=== PATIENT | female | born 1955 | race Caucasian/White ===

== ENCOUNTER → 2016-03-25 | Outpatient (CLI) | payer MEDICARE, OTHER ==
--- NOTE | 2016-03-26 07:31 | XR ---
EXAMINATION TYPE: XR knee complete RT DATE OF EXAM: 03/25/2016 1:59 PM CLINICAL HISTORY: pain TECHNIQUE: Three views of the right knee are obtained. COMPARISON: None. FINDINGS: There is no acute fracture/dislocation. Moderate tricompartment degenerative narrowing not ed. The overlying soft tissue appears unremarkable. IMPRESSION: There is no acute fracture or dislocation.ICD 10 NO FRACTURE, INITIAL EVALUATION
== END | disposition home or self-care (01) ==
LOC: RADXRYALE 11:21
PROVIDERS: ATTEND Family Medicine
DX: M25.561 Pain in right knee (principal)

== ENCOUNTER → 2016-04-13 | Outpatient (CLI) | payer MEDICARE, OTHER ==
--- NOTE | 2016-04-14 07:06 | XR ---
EXAMINATION TYPE: XR foot complete LT DATE OF EXAM: 04/13/2016 9:11 AM CLINICAL HISTORY: Pain and bruising laterally after fall injury 2 days ago. TECHNIQUE: Frontal, lateral, and oblique images of the left foot are obtained. COMPARISON: Left foot x-ray January 20, 2016. FINDINGS: Osseous structures are demineralized which is noted to lower radiographic sensitivity. See n best on oblique image there is new linear lucency through the fifth metatarsal head likely reflecti ng nondisplaced fracture.. There is varus positioning and flexion of distal fifth toe redemonstrated. Marked flexion at the second PIP joint is also again seen making evaluation at this level suboptimal . There is stable mild to moderate joint space loss first metatarsophalangeal joint. Slight hallux v algus positioning is redemonstrated. Mild diffuse subcutaneous edema is again seen. IMPRESSION: There is probable acute nondisplaced oblique fracture fifth metatarsal head level. (Initial encounter closed type post traumatic fracture)
== END | disposition home or self-care (01) ==
LOC: RADXRYALE 08:58
PROVIDERS: ATTEND Family Medicine
DX: S99.922A Unspecified injury of left foot, initial encounter (principal)

== ENCOUNTER 2018-06-05 20:34 | Emergency (ER) | payer MEDICARE, OTHER ==
[2018-06-05 20:40] VITALS: TEMP 98.1
[2018-06-05] MEDS ORDERED: HYDROmorphone 0.5 MG/0.5 ML SYRINGE IM STA (21:01)
[2018-06-05] MEDS ORDERED: DIAZEPAM 5 MG/ML 2 ML INJ IM ONE (21:01)
[2018-06-05] MEDS ORDERED: HYDROmorphone 1 MG/ML 1 ML SYRINGE IVP STA (21:01)
--- NOTE | 2018-06-05 22:03 | US ---
EXAMINATION TYPE: US venous doppler duplex LE RT DATE OF EXAM: 06/05/2018 9:41 PM COMPARISON: NONE CLINICAL HISTORY: Pain. right leg pain since fall 6 days ago, no swelling, no h/o dvt, patient has MS and is in a lot of discomfort during exam. SIDE PERFORMED: right TECHNIQUE: The lower extremity deep venous system is examined utilizing real time linear array sonog gómez with graded compression, doppler sonography and color-flow sonography. VESSELS IMAGED: External Iliac Vein (EIV) Common Femoral Vein Deep Femoral Vein Greater Saphenous Vein * Femoral Vein Popliteal Vein Small Saphenous Vein * Proximal Calf Veins (* superficial vessels) There is normal flow, compressibility, vascular waveforms. Right Leg: Appears negative for DVT Technologist reports a technically challenging exam. Patient did not cooperate. IMPRESSION: No evident deep venous thrombosis at or above the knee.
--- NOTE | 2018-06-05 22:07 | XR ---
AP pelvis HISTORY: Trauma and pain Single frontal view of the pelvis Bone mineralization, joint spaces and alignment are maintained. IMPRESSION: No fracture or dislocation. Follow-up as indicated.
--- NOTE | 2018-06-05 22:08 | XR ---
Right femur HISTORY: Trauma and pain 2 views of the femur are submitted on 4 images Bone mineralization and alignment are maintained. Arthropathy noted in the right knee. Mild arthropat hy of the right hip. IMPRESSION: No fracture or dislocation.
[2018-06-05] MEDS ORDERED: HYDROmorphone 1 MG/ML 1 ML SYRINGE IM STA (22:29)
--- NOTE | 2018-06-05 22:32 | ED ---
General Adult HPI - General Chief complaint: Fall Stated complaint: Leg pain Time Seen by Provider: 06/05/18 20:42 Source: patient Mode of arrival: wheelchair Limitations: physical limitation - History of Present Illness Initial comments: 63-year-old female patient presents to the emergency department today for evaluation of right hip and right leg pain. Patient states this started around midafternoon today. Patient states that it feels like the muscles are tightening in the thigh and she is unable to tolerate the pain. Patient does take morphine at home and it doesn't seem to be helping her. States that she did have a fall on Wednesday. She does have a history of multiple sclerosis is very unsteady on her feet. States she was not hanging onto anything and she lost her balance and fell landing on the right side. Patient denies any pain after the fall injury. She denies any numbness or tingling to the leg. Denies any other injuries. She denies fevers or chills with this. Denies rash. Patient denies any headache, neck pain, back pain, chest pain, shortness of breath, dizziness, weakness, abdominal pain, nausea, vomiting, or difficulties with bowel movements or urination. - Related Data Home Medications Medication Instructions Recorded Confirmed Albuterol Nebulized [Ventolin 2.5 mg INHALATION RT-QID PRN 12/28/13 09/16/15 Nebulized] Aspirin 325 mg PO DAILY 12/28/13 09/16/15 Budesonide [Pulmicort] 2 ml INHALATION RT-DAILY 12/28/13 09/16/15 Calcium Polycarbophil [Fibercon] 625 mg PO BID 12/28/13 09/16/15 Clopidogrel Bisulfate [Plavix] 75 mg PO DAILY 12/28/13 09/16/15 Diazepam [Valium] 10 mg PO HS 12/28/13 09/16/15 Fluticasone/Salmeterol [Advair 1 puff INHALATION RT-BID 12/28/13 09/16/15 250-50 Diskus] Gabapentin [Neurontin] 100 mg PO BID 12/28/13 09/16/15 Isosorbide Mononitrate [Imdur] 15 mg PO BID 12/28/13 09/16/15 Lidocaine 5% Patch [Lidoderm 5% 2 patch TOPICAL DAILY PRN 12/28/13 09/16/15 Patch] Metoprolol Tartrate 12.5 mg PO BID 12/28/13 09/16/15 Mometasone Furoate [Nasonex Nasal 1 spray EA NOSTRIL DAILY 12/28/13 09/16/15 [place]] Multivitamins, Thera [Multivitamin 1 tab PO DAILY 12/28/13 09/16/15 (formulary)] Nitroglycerin Sl Tabs [Nitrostat] 0.4 mg SL Q5M PRN 12/28/13 09/16/15 Loratadine [Claritin] 10 mg PO DAILY 03/18/14 09/16/15 Rosuvastatin Calcium [Crestor] 20 mg PO HS 01/06/15 09/16/15 Glatiramer Acetate [Copaxone] 40 mg SQ MOWESA 01/07/15 09/16/15 Mineral Oil 133 ml RC ONCE PRN 01/07/15 09/16/15 Morphine Sulfate ER [Ms Contin] 30 mg PO Q12HR 01/07/15 09/16/15 Morphine Sulfate Ir [MSIR] 30 mg PO BID PRN 01/07/15 09/16/15 Cyanocobalamin [Vitamin B-12] 500 mcg PO DAILY 09/16/15 09/16/15 Ferrous Sulfate [Feosol] 325 mg PO DAILY 09/16/15 09/16/15 Fluticasone/Salmeterol [Advair 1 puff INHALATION RT-BID 09/16/15 09/16/15 250-50 Diskus] Previous Rx's Medication Instructions Recorded Omeprazole [PriLOSEC] 40 mg PO -BRKFST #14 capsule. 09/17/15 Allergies Allergy/AdvReac Type Severity Reaction Status Date / Time acetaminophen [From Percocet] Allergy Anaphylaxis Verified 06/05/18 20:40 ampicillin Allergy Rash/Hives Verified 06/05/18 20:40 atorvastatin calcium Allergy Unknown Verified 06/05/18 20:40 [From Lipitor] ciprofloxacin HCl Allergy Rash/Hives Verified 06/05/18 20:40 [From Cipro] diphenhydramine HCl Allergy Unknown Verified 06/05/18 20:40 [From Benadryl] fentanyl [From Duragesic] Allergy Unknown Verified 06/05/18 20:40 iodine Allergy Rash/Hives Verified 06/05/18 20:40 oxymorphone HCl [From Opana] Allergy Unknown Verified 06/05/18 20:40 Sulfa (Sulfonamide Allergy Unknown Verified 06/05/18 20:40 Antibiotics) azithromycin [From Zithromax] AdvReac Nausea Verified 06/05/18 20:40 cephalexin monohydrate AdvReac Nausea Verified 06/05/18 20:40 [From Keflex] oxycodone HCl AdvReac Hallucinati Verified 06/05/18 20:40 [From OxyContin] ons propoxyphene HCl AdvReac Nausea Verified 06/05/18 20:40 [From Darvon] Review of Systems ROS Statement: Those systems with pertinent positive or pertinent negative responses have been documented in the HPI. ROS Other: All systems not noted in ROS Statement are negative. Past Medical History Past Medical History: Asthma, Coronary Artery Disease (CAD), Chest Pain / Angina, COPD, Eye Disorder, Fibromyalgia, GI Bleed, Hyperlipidemia, Neurologic Disorder, Osteoarthritis (OA) Additional Past Medical History / Comment(s): MS History of Any Multi-Drug Resistant Organisms: None Reported Past Surgical History: Appendectomy, Heart Catheterization With Stent, Hysterectomy, Joint Replacement, Orthopedic Surgery Additional Past Surgical History / Comment(s): CARDIAC STENTS 10 Past Anesthesia/Blood Transfusion Reactions: No Reported Reaction Date of Last Stent Placement:: 2008 Past Psychological History: Anxiety Smoking Status: Never smoker Past Alcohol Use History: None Reported Past Drug Use History: None Reported - Past Family History Mother Additional Family Medical History / Comment(s): Lupus Sister(s) Family Medical History: Cancer Additional Family Medical History / Comment(s): Uterus General Exam Limitations: physical limitation General appearance: alert, in no apparent distress, other (This is a well- developed, well-nourished adult female patient in mild distress related to pain. Vital signs upon presentation are temperature 98.1F. 99, respirations 20, blood pressure 116/71, pulse ox 93% on room air.) Eye exam: Present: normal appearance, PERRL, EOMI. Absent: scleral icterus, conjunctival injection, periorbital swelling ENT exam: Present: normal exam, normal oropharynx, mucous membranes moist Respiratory exam: Present: normal lung sounds bilaterally. Absent: respiratory distress, wheezes, rales, rhonchi, stridor Cardiovascular Exam: Present: regular rate, normal rhythm, normal heart sounds. Absent: systolic murmur, diastolic murmur, rubs, gallop, clicks Extremities exam: Present: normal inspection, full ROM, normal capillary refill, other (Patient has nonpitting edema noted to the bilateral lower extremities. Skin is pink, warm, and dry. Cap refills less than 3 seconds. Pedal and posttibial pulses are 2+ and equal bilaterally.). Absent: tenderness, pedal edema, joint swelling, calf tenderness Back exam: Present: normal inspection. Absent: vertebral tenderness Neurological exam: Present: alert, oriented X3, CN II-XII intact Psychiatric exam: Present: normal affect, normal mood Skin exam: Present: warm, dry, intact, normal color. Absent: rash Course Vital Signs 06/05/18 06/05/18 20:37 22:51 Temperature 98.1 F Pulse Rate 99 83 Respiratory 20 18 Rate Blood Pressure 116/71 123/71 O2 Sat by Pulse 93 L 97 Oximetry Medical Decision Making - Medical Decision Making 63-year-old female patient presented to the emergency department today for evaluation of right hip and right thigh pain. Physical examination is relatively unremarkable. Neurovascular status was intact. X-rays of the pelvis, right femur were obtained and showed no evidence of fracture or dislocations. Patient did have venous Doppler duplex of the right lower extremity which showed no evidence for DVT. Patient was given IM pain medications here in the emergency department. She does have morphine at home as well as Valium. She is instructed to start taking the Valium 3 times daily as needed. Parent instructed to apply ice or heat to the area alternating. Instructed to follow-up with the primary care physician for recheck as soon as possible. Return parameters discussed in detail. They verbalize understanding and agree with this plan. - Radiology Data Radiology results: report reviewed, image reviewed Single frontal view of the pelvis was obtained. Report was reviewed in its entirety. Impression by Dr. Covington shows no fracture or dislocation. 2 views on four images of the right femur are submitted. Report was reviewed in its entirety. Impression by Dr. Covington shows no fracture dislocation. Venous Doppler duplex of the right lower extremity is obtained. Report was reviewed in its entirety. Impression by Dr. Covington shows negative for DVT. Disposition Clinical Impression: Strain of right hip and thigh Disposition: HOME SELF-CARE Condition: Good Instructions (If sedation given, give patient instructions): Leg Pain (ED) Additional Instructions: Take home medications as directed. Follow-up with your primary care physician for recheck as soon as possible. Return to the emergency department immediately for any new, worsening, or concerning symptoms. Is patient prescribed a controlled substance at d/c from ED?: No Referrals: Preet Gu DO [Primary Care Provider] - 1-2 days Time of Disposition: 22:32
[2018-06-05 22:51] VITALS: BP 123/71; PULSE 83; RESP 18
== END 2018-06-05 22:40 | disposition home or self-care (01) ==
LOC: EC 20:34
DX: S76.011A Strain of muscle, fascia and tendon of right hip, initial encounter (principal); S76.911A Strain of unspecified muscles, fascia and tendons at thigh level, right thigh, initial encounter; I25.119 Atherosclerotic heart disease of native coronary artery with unspecified angina pectoris; J44.9 Chronic obstructive pulmonary disease, unspecified; E78.5 Hyperlipidemia, unspecified; F41.9 Anxiety disorder, unspecified; Z79.02 Long term (current) use of antithrombotics/antiplatelets; Z79.82 Long term (current) use of aspirin; Z79.51 Long term (current) use of inhaled steroids; Z79.899 Other long term (current) drug therapy; Z88.1 Allergy status to other antibiotic agents; Z88.6 Allergy status to analgesic agent; Z88.8 Allergy status to other drugs, medicaments and biological substances; Z88.2 Allergy status to sulfonamides; Z88.5 Allergy status to narcotic agent; Z91.048 Other nonmedicinal substance allergy status; Z95.5 Presence of coronary angioplasty implant and graft; W19.XXXA Unspecified fall, initial encounter
CPT/HCPCS: 72170; 73552; 93971; 99284; 96372 ×3; J3360; J1170 ×2

== ENCOUNTER 2019-08-31 21:29 | Emergency (ER) | payer MEDICARE, OTHER ==
[2019-08-31 21:42] VITALS: RESP 18; TEMP 98
[2019-08-31 22:26] LABS: Basophils # (A) 0.1 k/uL (0-0.2); Basophils % (A) 1 %; Eosinophils # (A) 0.5 k/uL (0-0.7); Eosinophils % (A) 5 %; HCT 44.7 % (34.0-46.0); HGB 13.6 gm/dL (11.4-16.0); Hypochromasia Marked; Lymphocytes % (A) 10 %; MCH 27.5 pg (25.0-35.0); MCHC 30.3 g/dL (31.0-37.0); MCV 90.7 fL (80.0-100.0); Mean Platelet Volume 8.3; Monocytes # (A) 0.4 k/uL (0-1.0); Monocytes % (A) 4 %; Neutrophils # (A) 8.3 k/uL (1.3-7.7); Neutrophils % (A) 80 %; Platelet Count 378 k/uL (150-450); RBC 4.93 m/uL (3.80-5.40); RDW 13.7 % (11.5-15.5); WBC 10.4 k/uL (3.8-10.6)
[2019-08-31 22:32] LABS: ALT 13 U/L (4-34); AST 27 U/L (14-36); African American GFR (CKD) >90 (>60 ml/min/1.73 sqM); Alkaline Phosphatase 109 U/L (38-126); Anion Gap 9 mmol/L; Blood Urea Nitrogen 15 mg/dL (7-17); Carbon Dioxide 25 mmol/L (22-30); Chloride 103 mmol/L (98-107); Glucose 114 mg/dL (74-99); Non-African American GFR(CKD) >90 (>60 ml/min/1.73 sqM); Potassium 4.2 mmol/L (3.5-5.1); Sodium 137 mmol/L (137-145); Total Bilirubin 0.2 mg/dL (0.2-1.3); Total Protein 7.2 g/dL (6.3-8.2)
--- NOTE | 2019-08-31 22:36 | XR ---
EXAMINATION TYPE: XR chest 2V DATE OF EXAM: 08/31/2019 COMPARISON: 09/16/2015 HISTORY: Chest pain TECHNIQUE: FINDINGS: There is no heart failure nor confluent pneumonic infiltrate. Costophrenic angles are clear . There is some fullness at the aortopulmonary window. There is slight increased right paratracheal d ensity compared to old exam. There is no pleural effusion. IMPRESSION: Compared to old exam there appears to be development of mediastinal adenopathy. Normal he art size. No heart failure seen. Follow-up is recommended.
[2019-08-31] MEDS ORDERED: MORPHINE SULFATE 4 MG/ML SYRINGE IVP STA (23:07)
[2019-08-31] MEDS ORDERED: LORazepam 2 MG/ML INJ IV STA (23:09)
[2019-08-31 23:17] LABS: INR 1.1 (<1.2); Prothrombin Time 11.1 sec (9.0-12.0)
[2019-08-31 23:24] LABS: Partial Thromboplastin Time 21.6 sec (22.0-30.0)
--- NOTE | 2019-09-01 00:55 | ED ---
Back Pain HPI - General Chief Complaint: Chest Pain Stated Complaint: back pain Time Seen by Provider: 08/31/19 22:56 Source: patient, EMS Limitations: no limitations - History of Present Illness Initial Comments: Patient is a 64-year-old female, with history of MS, presenting to the emergency Department via EMS with complaints of left sided upper back pain since the middle of July. Patient was given 15 of Toradol EMS prior to arrival without any improvement of her pain. Patient states she did go to her PCP for this and he stated it was mostly muscle related. She already takes morphine at home for pain and they did add on a muscle relaxer however she feels like it is not working. She states she is getting some referred pains to the right side of her chest. She denies any falls or trauma to cause this pain. She states it increases when she takes in a deep breath or when she turns her torso. She denies any recent fever, chills, shortness of breath. She denies any abdominal pain, nausea, vomiting. She has no further complaints at this time. Upon arrival to the ER, her vital signs are stable. - Related Data Home Medications Medication Instructions Recorded Confirmed Albuterol Nebulized [Ventolin 2.5 mg INHALATION RT-QID PRN 12/28/13 09/16/15 Nebulized] Aspirin 325 mg PO DAILY 12/28/13 09/16/15 Budesonide [Pulmicort] 2 ml INHALATION RT-DAILY 12/28/13 09/16/15 Calcium Polycarbophil [Fibercon] 625 mg PO BID 12/28/13 09/16/15 Clopidogrel Bisulfate [Plavix] 75 mg PO DAILY 12/28/13 09/16/15 Diazepam [Valium] 10 mg PO HS 12/28/13 09/16/15 Fluticasone/Salmeterol [Advair 1 puff INHALATION RT-BID 12/28/13 09/16/15 250-50 Diskus] Gabapentin [Neurontin] 100 mg PO BID 12/28/13 09/16/15 Isosorbide Mononitrate [Imdur] 15 mg PO BID 12/28/13 09/16/15 Lidocaine 5% Patch [Lidoderm 5% 2 patch TOPICAL DAILY PRN 12/28/13 09/16/15 Patch] Metoprolol Tartrate 12.5 mg PO BID 12/28/13 09/16/15 Mometasone Furoate [Nasonex Nasal 1 spray EA NOSTRIL DAILY 12/28/13 09/16/15 [place]] Multivitamins, Thera [Multivitamin 1 tab PO DAILY 12/28/13 09/16/15 (formulary)] Nitroglycerin Sl Tabs [Nitrostat] 0.4 mg SL Q5M PRN 12/28/13 09/16/15 Loratadine [Claritin] 10 mg PO DAILY 03/18/14 09/16/15 Rosuvastatin Calcium [Crestor] 20 mg PO HS 01/06/15 09/16/15 Glatiramer Acetate [Copaxone] 40 mg SQ MOWESA 01/07/15 09/16/15 Mineral Oil 133 ml RC ONCE PRN 01/07/15 09/16/15 Morphine Sulfate ER [Ms Contin] 30 mg PO Q12HR 01/07/15 09/16/15 Morphine Sulfate Ir [MSIR] 30 mg PO BID PRN 01/07/15 09/16/15 Cyanocobalamin [Vitamin B-12] 500 mcg PO DAILY 09/16/15 09/16/15 Ferrous Sulfate [Feosol] 325 mg PO DAILY 09/16/15 09/16/15 Fluticasone/Salmeterol [Advair 1 puff INHALATION RT-BID 09/16/15 09/16/15 250-50 Diskus] Previous Rx's Medication Instructions Recorded Omeprazole [PriLOSEC] 40 mg PO AC-BRKFST #14 capsule. 09/17/15 Allergies Allergy/AdvReac Type Severity Reaction Status Date / Time acetaminophen [From Percocet] Allergy Anaphylaxis Verified 08/31/19 21:43 ampicillin Allergy Rash/Hives Verified 08/31/19 21:43 atorvastatin calcium Allergy Unknown Verified 08/31/19 21:43 [From Lipitor] ciprofloxacin HCl Allergy Rash/Hives Verified 08/31/19 21:43 [From Cipro] diphenhydramine HCl Allergy Unknown Verified 08/31/19 21:43 [From Benadryl] fentanyl [From Duragesic] Allergy Unknown Verified 08/31/19 21:43 iodine Allergy Rash/Hives Verified 08/31/19 21:43 oxymorphone HCl [From Opana] Allergy Unknown Verified 08/31/19 21:43 Sulfa (Sulfonamide Allergy Unknown Verified 08/31/19 21:43 Antibiotics) azithromycin [From Zithromax] AdvReac Nausea Verified 08/31/19 21:43 cephalexin monohydrate AdvReac Nausea Verified 08/31/19 21:43 [From Keflex] oxycodone HCl AdvReac Hallucinati Verified 08/31/19 21:43 [From OxyContin] ons propoxyphene HCl AdvReac Nausea Verified 08/31/19 21:43 [From Darvon] Review of Systems ROS Statement: Those systems with pertinent positive or pertinent negative responses have been documented in the HPI. ROS Other: All systems not noted in ROS Statement are negative. Past Medical History Past Medical History: Asthma, Coronary Artery Disease (CAD), Chest Pain / Angina, COPD, Eye Disorder, Fibromyalgia, GI Bleed, Hyperlipidemia, Neurologic Disorder, Osteoarthritis (OA) Additional Past Medical History / Comment(s): MS History of Any Multi-Drug Resistant Organisms: None Reported Past Surgical History: Appendectomy, Heart Catheterization With Stent, Hysterectomy, Joint Replacement, Orthopedic Surgery Additional Past Surgical History / Comment(s): CARDIAC STENTS 10 Past Anesthesia/Blood Transfusion Reactions: No Reported Reaction Date of Last Stent Placement:: 2008 Past Psychological History: Anxiety Smoking Status: Never smoker Past Alcohol Use History: None Reported Past Drug Use History: None Reported - Past Family History Mother Additional Family Medical History / Comment(s): Lupus Sister(s) Family Medical History: Cancer Additional Family Medical History / Comment(s): Uterus General Exam - General Exam Comments Initial Comments: GENERAL: Well-appearing, well-nourished and in no acute distress, but appears uncomfortable. HEAD: Atraumatic, normocephalic. EYES: Pupils equal round and reactive to light, extraocular movements intact, sclera anicteric, conjunctiva are normal. ENT: TMs normal, nares patent, oropharynx clear without exudates. Moist mucous membranes. NECK: Normal range of motion, supple without lymphadenopathy or JVD. LUNGS: Breath sounds clear to auscultation bilaterally and equal. No wheezes rales or rhonchi. HEART: Regular rate and rhythm without murmurs, rubs or gallops. ABDOMEN: Soft, nontender, normoactive bowel sounds. No guarding, no rebound. No masses appreciated. : Deferred EXTREMITIES: Normal range of motion, no pitting or edema. No clubbing or cyanosis. Patient has pain to palpation of the left upper thoracic area, around the scapula. There is some muscle tightness in this area. NEUROLOGICAL: Cranial nerves II through XII grossly intact. Normal speech, normal gait. PSYCH: Normal mood, normal affect. SKIN: Warm, Dry, normal turgor, no rashes or lesions noted. Limitations: no limitations Course Vital Signs 08/31/19 08/31/19 09/01/19 21:40 23:23 02:06 Temperature 98 F 98 F Pulse Rate 84 85 80 Respiratory 18 18 18 Rate Blood Pressure 174/89 143/83 140/78 O2 Sat by Pulse 99 99 99 Oximetry Medical Decision Making - Medical Decision Making Patient is 64-year-old female, with history of MS, presenting for left upper thoracic pain 2 weeks. She has seen her PCP for this. She already takes morphine at home and they did add on a muscle relaxer. EKG shows no acute abnormalities, lab work today is unremarkable, troponin is normal. Chest x-ray Shows a slight increase in the right paratracheal density compared to old exam, no other acute findings. Do recommend following up with PCP regarding this. Patient was given pain control, Ativan and has been resting comfortably in the ER. I discussed with patient that I think her symptoms are most likely related to a muscle spasm. I did recommended continuing with her already prescribed medications, add heat to the area and gentle stretching. She also needs to follow up with her neurologist. She is in agreement with this plan of care. She is stable for discharge. Case discussed with Dr. Cason. - Lab Data Result diagrams: 08/31/19 22:13 08/31/19 22:13 Lab Results 08/31/19 08/31/19 08/31/19 Range/Units 22:13 22:13 22:13 WBC 10.4 (3.8-10.6) k/uL RBC 4.93 (3.80-5.40) m/uL Hgb 13.6 (11.4-16.0) gm/dL Hct 44.7 (34.0-46.0) % MCV 90.7 (80.0-100.0) fL MCH 27.5 (25.0-35.0) pg MCHC 30.3 L (31.0-37.0) g/dL RDW 13.7 (11.5-15.5) % Plt Count 378 (150-450) k/uL Neutrophils % 80 % Lymphocytes % 10 % Monocytes % 4 % Eosinophils % 5 % Basophils % 1 % Neutrophils # 8.3 H (1.3-7.7) k/uL Lymphocytes # 1.0 (1.0-4.8) k/uL Monocytes # 0.4 (0-1.0) k/uL Eosinophils # 0.5 (0-0.7) k/uL Basophils # 0.1 (0-0.2) k/uL Hypochromasia Marked PT 11.1 (9.0-12.0) sec INR 1.1 (<1.2) APTT 21.6 L (22.0-30.0) sec Sodium 137 (137-145) mmol/L Potassium 4.2 (3.5-5.1) mmol/L Chloride 103 (98-107) mmol/L Carbon Dioxide 25 (22-30) mmol/L Anion Gap 9 mmol/L BUN 15 (7-17) mg/dL Creatinine 0.65 (0.52-1.04) mg/dL Est GFR (CKD-EPI)AfAm >90 (>60 ml/min/1.73 sqM) Est GFR (CKD-EPI)NonAf >90 (>60 ml/min/1.73 sqM) Glucose 114 H (74-99) mg/dL Calcium 10.0 (8.4-10.2) mg/dL Total Bilirubin 0.2 (0.2-1.3) mg/dL AST 27 (14-36) U/L ALT 13 (4-34) U/L Alkaline Phosphatase 109 (38-126) U/L Troponin I (0.000-0.034) ng/mL Total Protein 7.2 (6.3-8.2) g/dL Albumin 4.0 (3.5-5.0) g/dL 08/31/19 Range/Units 22:13 WBC (3.8-10.6) k/uL RBC (3.80-5.40) m/uL Hgb (11.4-16.0) gm/dL Hct (34.0-46.0) % MCV (80.0-100.0) fL MCH (25.0-35.0) pg MCHC (31.0-37.0) g/dL RDW (11.5-15.5) % Plt Count (150-450) k/uL Neutrophils % % Lymphocytes % % Monocytes % % Eosinophils % % Basophils % % Neutrophils # (1.3-7.7) k/uL Lymphocytes # (1.0-4.8) k/uL Monocytes # (0-1.0) k/uL Eosinophils # (0-0.7) k/uL Basophils # (0-0.2) k/uL Hypochromasia PT (9.0-12.0) sec INR (<1.2) APTT (22.0-30.0) sec Sodium (137-145) mmol/L Potassium (3.5-5.1) mmol/L Chloride (98-107) mmol/L Carbon Dioxide (22-30) mmol/L Anion Gap mmol/L BUN (7-17) mg/dL Creatinine (0.52-1.04) mg/dL Est GFR (CKD-EPI)AfAm (>60 ml/min/1.73 sqM) Est GFR (CKD-EPI)NonAf (>60 ml/min/1.73 sqM) Glucose (74-99) mg/dL Calcium (8.4-10.2) mg/dL Total Bilirubin (0.2-1.3) mg/dL AST (14-36) U/L ALT (4-34) U/L Alkaline Phosphatase (38-126) U/L Troponin I <0.012 (0.000-0.034) ng/mL Total Protein (6.3-8.2) g/dL Albumin (3.5-5.0) g/dL - EKG Data EKG Comments: EKG shows normal sinus rhythm, nonspecific T-wave abnormalities, no signs of acute ischemia. This is similar to previous EKG on 09/17/2015. Adam rate 80, CO interval 152, QT 364. Disposition Clinical Impression: Upper back pain on left side, Musculoskeletal pain Disposition: HOME SELF-CARE Condition: Stable Instructions (If sedation given, give patient instructions): Muscle Spasm (ED) Additional Instructions: Please return to the Emergency Department if symptoms worsen or any other concerns. May continue with already prescribed pain control as well as muscle relaxers. Recommend following up with neurologist. Is patient prescribed a controlled substance at d/c from ED?: No Referrals: Preet Gu DO [Primary Care Provider] - 1-2 days
[2019-09-01 02:06] VITALS: BP 140/78; PULSE 80
== END 2019-09-01 02:10 | disposition home or self-care (01) ==
LOC: EC 21:29
DX: M54.6 Pain in thoracic spine (principal); M79.18 Myalgia, other site; G35 Multiple sclerosis; I25.119 Atherosclerotic heart disease of native coronary artery with unspecified angina pectoris; J44.9 Chronic obstructive pulmonary disease, unspecified; E78.5 Hyperlipidemia, unspecified; M19.90 Unspecified osteoarthritis, unspecified site; F41.9 Anxiety disorder, unspecified; Z79.02 Long term (current) use of antithrombotics/antiplatelets; Z79.51 Long term (current) use of inhaled steroids; Z79.82 Long term (current) use of aspirin; Z79.891 Long term (current) use of opiate analgesic; Z79.899 Other long term (current) drug therapy; Z88.8 Allergy status to other drugs, medicaments and biological substances; Z88.5 Allergy status to narcotic agent; Z88.1 Allergy status to other antibiotic agents; Z88.0 Allergy status to penicillin; Z88.2 Allergy status to sulfonamides; Z91.048 Other nonmedicinal substance allergy status; Z95.5 Presence of coronary angioplasty implant and graft
CPT/HCPCS: 36415; 93005; 80053; 84484; 85025; 85610; 85730; 71046; 96374; 96375; 99284; J2060; J2270

== ENCOUNTER 2019-09-02 23:15 | Observation (INO) | payer MEDICARE, OTHER ==
[2019-09-02] MEDS ORDERED: MORPHINE SULFATE 4 MG/ML SYRINGE IV STA (23:48)
[2019-09-02] MEDS ORDERED: ASPIRIN 81 MG PO STA (23:48)
--- NOTE | 2019-09-03 00:10 | ED ---
Chest Pain HPI - General Chief Complaint: Chest Pain Stated Complaint: Back Pain Time Seen by Provider: 09/02/19 23:23 Source: patient, EMS Mode of arrival: EMS Limitations: physical limitation - History of Present Illness Initial Comments: Kenia is a 64-year-old female with history of MS who presents the ER today for reevaluation of back and chest pain. Patient believes pain began in her back and is radiating to her chest. Not associated with any cough or shortness of breath. Patient reports the pain began in mid July she seen her primary care a nd was seen in the emergency department for this 2 days ago. At that time she had a normal, EKG, CXR and labs and felt better with IV narcotics and was discharged home. She reports she's not been able to manage her pain at home. Patient denies any recent falls or injuries. She reports this pain is unlike previous episodes of back pain - Related Data Home Medications Medication Instructions Recorded Confirmed Albuterol Nebulized [Ventolin 2.5 mg INHALATION RT-QID PRN 12/28/13 09/16/15 Nebulized] Aspirin 325 mg PO DAILY 12/28/13 09/16/15 Budesonide [Pulmicort] 2 ml INHALATION RT-DAILY 12/28/13 09/16/15 Calcium Polycarbophil [Fibercon] 625 mg PO BID 12/28/13 09/16/15 Clopidogrel Bisulfate [Plavix] 75 mg PO DAILY 12/28/13 09/16/15 Diazepam [Valium] 10 mg PO HS 12/28/13 09/16/15 Fluticasone/Salmeterol [Advair 1 puff INHALATION RT-BID 12/28/13 09/16/15 250-50 Diskus] Gabapentin [Neurontin] 100 mg PO BID 12/28/13 09/16/15 Isosorbide Mononitrate [Imdur] 15 mg PO BID 12/28/13 09/16/15 Lidocaine 5% Patch [Lidoderm 5% 2 patch TOPICAL DAILY PRN 12/28/13 09/16/15 Patch] Metoprolol Tartrate 12.5 mg PO BID 12/28/13 09/16/15 Mometasone Furoate [Nasonex Nasal 1 spray EA NOSTRIL DAILY 12/28/13 09/16/15 [place]] Multivitamins, Thera [Multivitamin 1 tab PO DAILY 12/28/13 09/16/15 (formulary)] Nitroglycerin Sl Tabs [Nitrostat] 0.4 mg SL Q5M PRN 12/28/13 09/16/15 Loratadine [Claritin] 10 mg PO DAILY 03/18/14 09/16/15 Rosuvastatin Calcium [Crestor] 20 mg PO HS 01/06/15 09/16/15 Glatiramer Acetate [Copaxone] 40 mg SQ MOWESA 01/07/15 09/16/15 Mineral Oil 133 ml RC ONCE PRN 01/07/15 09/16/15 Morphine Sulfate ER [Ms Contin] 30 mg PO Q12HR 01/07/15 09/16/15 Morphine Sulfate Ir [MSIR] 30 mg PO BID PRN 01/07/15 09/16/15 Cyanocobalamin [Vitamin B-12] 500 mcg PO DAILY 09/16/15 09/16/15 Ferrous Sulfate [Feosol] 325 mg PO DAILY 09/16/15 09/16/15 Fluticasone/Salmeterol [Advair 1 puff INHALATION RT-BID 09/16/15 09/16/15 250-50 Diskus] Previous Rx's Medication Instructions Recorded Omeprazole [PriLOSEC] 40 mg PO AC-[id number] #14 capsule. 09/17/15 Allergies Allergy/AdvReac Type Severity Reaction Status Date / Time acetaminophen [From Percocet] Allergy Anaphylaxis Verified 08/31/19 21:43 ampicillin Allergy Rash/Hives Verified 08/31/19 21:43 atorvastatin calcium Allergy Unknown Verified 08/31/19 21:43 [From Lipitor] ciprofloxacin HCl Allergy Rash/Hives Verified 08/31/19 21:43 [From Cipro] diphenhydramine HCl Allergy Unknown Verified 08/31/19 21:43 [From Benadryl] fentanyl [From Duragesic] Allergy Unknown Verified 08/31/19 21:43 iodine Allergy Rash/Hives Verified 08/31/19 21:43 oxymorphone HCl [From Opana] Allergy Unknown Verified 08/31/19 21:43 Sulfa (Sulfonamide Allergy Unknown Verified 08/31/19 21:43 Antibiotics) azithromycin [From Zithromax] AdvReac Nausea Verified 08/31/19 21:43 cephalexin monohydrate AdvReac Nausea Verified 08/31/19 21:43 [From Keflex] oxycodone HCl AdvReac Hallucinati Verified 08/31/19 21:43 [From OxyContin] ons propoxyphene HCl AdvReac Nausea Verified 08/31/19 21:43 [From Darvon] Review of Systems ROS Statement: Those systems with pertinent positive or pertinent negative responses have been documented in the HPI. ROS Other: All systems not noted in ROS Statement are negative. EKG Findings - EKG Comments: EKG Findings:: EKG was obtained due to complaint chest pain, EKG was obtained 12:39 AM, rate is 79 rhythm is sinus there is normal axis, normal intervals, TN 138, care stage II from QTc is [address] elevations or depressions no evidence of acute ischemia infarction or arrhythmia. Past Medical History Past Medical History: Asthma, Coronary Artery Disease (CAD), Chest Pain / Angina, COPD, Eye Disorder, Fibromyalgia, GI Bleed, Hyperlipidemia, Neurologic Disorder, Osteoarthritis (OA) Additional Past Medical History / Comment(s): MS History of Any Multi-Drug Resistant Organisms: None Reported Past Surgical History: Appendectomy, Heart Catheterization With Stent, Hysterectomy, Joint Replacement, Orthopedic Surgery Additional Past Surgical History / Comment(s): CARDIAC STENTS 10 Past Anesthesia/Blood Transfusion Reactions: No Reported Reaction Date of Last Stent Placement:: 2008 Past Psychological History: Anxiety Smoking Status: Never smoker Past Alcohol Use History: None Reported Past Drug Use History: None Reported - Past Family History Mother Additional Family Medical History / Comment(s): Lupus Sister(s) Family Medical History: Cancer Additional Family Medical History / Comment(s): Uterus General Exam - General Exam Comments Initial Comments: Physical Exam GENERAL: Chronically debilitated female appears older than stated age HENT: Normocephalic, Atraumatic. EYES: PERRL, EOMI PULMONARY: Unlabored respirations. No audible rales rhonchi or wheezing was noted. CARDIOVASCULAR: There is a regular rate and rhythm without any murmurs gallops or rubs. ABDOMEN: Mild distention, soft, nontender SKIN: Skin is clear with no lesions or rashes and otherwise unremarkable. : Normal external genitalia NEUROLOGIC: Patient is alert and oriented x3. Moving all extremities spontaneously MUSCULOSKELETAL: Weakness in the lower extremities consistent with MS PSYCHIATRIC: Normal psychiatric evaluation. Limitations: physical limitation Course Vital Signs 09/02/19 09/03/19 09/03/19 23:23 01:31 02:42 Temperature 98.7 F Pulse Rate 89 80 95 Respiratory 18 16 18 Rate Blood Pressure 107/78 138/81 137/60 O2 Sat by Pulse 99 98 100 Oximetry Chest Pain MDM - MDM Patient was seen and evaluated history is obtained from patient and review of medical record This is a pleasant 64-year-old lady doesn't frequently come to the ER however was seen 2 days ago for back and chest pain, chest x-ray concerning for possible mass D-dimer is elevated CTA was obtained there is no signs of PE however there is concern for mass in the left lung Patient's pain was very difficult to control she received multiple doses of narcotics At this time we will plan to admit the patient for pain management as well as further evaluation of the lung mass, patient agreeable to this Disposition Clinical Impression: Lung mass, Intractable pain Disposition: ADMITTED IP TO THIS [facility] Condition: Stable
--- NOTE | 2019-09-03 00:10 | XR ---
EXAMINATION TYPE: XR chest 2V DATE OF EXAM: 09/02/2019 COMPARISON: August 31, 2019 HISTORY: Chest pain TECHNIQUE: FINDINGS: Heart size is normal. There is 5 cm masslike infiltrate inferior to the left pulmonary hilu m in the left lower lobe superior segment. The other lung mayo are clear. There is some fullness of the azygos lymph node. There is some fullness at the aortopulmonary window. Costophrenic angles are clear. There is no heart failure. There is no pleural effusion. Bony thorax is intact. IMPRESSION: Left lower lobe masslike infiltrate. Possible mediastinal adenopathy. No change compared to exam 2 days ago. Follow-up recommended. Tumor is possible.
[2019-09-03 00:36] LABS: ALT 17 U/L (4-34); AST 37 U/L (14-36); African American GFR (CKD) >90 (>60 ml/min/1.73 sqM); Albumin 3.9 g/dL (3.5-5.0); Alkaline Phosphatase 92 U/L (38-126); Anion Gap 6 mmol/L; Blood Urea Nitrogen 16 mg/dL (7-17); Calcium 9.2 mg/dL (8.4-10.2); Carbon Dioxide 29 mmol/L (22-30); Chloride 103 mmol/L (98-107); Glucose 112 mg/dL (74-99); Magnesium 2.1 mg/dL (1.6-2.3); Non-African American GFR(CKD) >90 (>60 ml/min/1.73 sqM); Potassium 4.3 mmol/L (3.5-5.1); Sodium 138 mmol/L (137-145); Total Bilirubin 0.4 mg/dL (0.2-1.3); Total Protein 6.8 g/dL (6.3-8.2)
[2019-09-03 00:43] LABS: INR 1.1 (<1.2); Prothrombin Time 11.6 sec (9.0-12.0)
[2019-09-03 00:46] LABS: Basophils # (A) 0.1 k/uL (0-0.2); Basophils % (A) 1 %; Eosinophils # (A) 0.4 k/uL (0-0.7); Eosinophils % (A) 4 %; HCT 42.7 % (34.0-46.0); HGB 12.9 gm/dL (11.4-16.0); Hypochromasia Marked; Lymphocytes # (A) 0.8 k/uL (1.0-4.8); Lymphocytes % (A) 9 %; MCH 27.3 pg (25.0-35.0); MCHC 30.1 g/dL (31.0-37.0); MCV 90.7 fL (80.0-100.0); Mean Platelet Volume 8.6; Monocytes # (A) 0.6 k/uL (0-1.0); Monocytes % (A) 6 %; Neutrophils # (A) 7.4 k/uL (1.3-7.7); Neutrophils % (A) 79 %; Platelet Count 337 k/uL (150-450); RBC 4.71 m/uL (3.80-5.40); RDW 14.2 % (11.5-15.5); WBC 9.3 k/uL (3.8-10.6)
[2019-09-03 00:53] LABS: D-Dimer 0.66 mg/L FEU (<0.60); Partial Thromboplastin Time 20.8 sec (22.0-30.0)
--- NOTE | 2019-09-03 02:02 | CT ---
EXAMINATION TYPE: CT chest angio for PE DATE OF EXAM: 09/03/2019 COMPARISON: None HISTORY: chest pain CT DLP: 526.3 mGycm Automated exposure control for dose reduction was used. CONTRAST: Performed with IV Contrast, patient injected with 55 mL of Isovue 370. There are 3-D post processed images. There is a 5 x 4 cm lobulated soft tissue noncalcified masslike infiltrate in the left lower lobe ext ending to the left pulmonary hilum. There is 2.5 cm enlarged subcarinal lymph node. There is enlarged left bronchial lymph nodes up to 1.5 cm. There is enlarged anterior mediastinal lymph node measuring 3.6 x 1.5 cm. There are other smaller anterior mediastinal lymph nodes measuring 1.5 cm. There is 1. 5 cm right paratracheal lymph node. There is normal contrast opacification of the pulmonary arteries. There are no filling defects. Thora cic aorta is intact. There is no aneurysm or dissection. Heart size is normal. There is no pericardia l effusion. Thoracic vertebra have normal spacing and alignment. Posterior elements are intact. The ribs appear i ntact. The ribs appear intact. Upper abdominal soft tissues appear intact. IMPRESSION: No evidence of pulmonary embolism. Lobulated mass in the left lower lobe suspicious for tumor. Mediastinal and bronchial adenopathy. Fol low-up recommended.
[2019-09-03] MEDS ORDERED: MORPHINE SULFATE 4 MG/ML SYRINGE IM STA (02:34)
[2019-09-03] MEDS ORDERED: oxyCODONE-APAP 5-325MG 1 EACH TAB PO PRN (02:58)
[2019-09-03] MEDS ORDERED: NALOXONE 0.4 MG/ML 1 ML VIAL IV PRN (02:58)
[2019-09-03] MEDS: MORPHINE SULFATE 4 MG/ML SYRINGE IV PRN ×3 (06:04→14:57)
[2019-09-03] MEDS: HYDROmorphone 0.5 MG/0.5 ML SYRINGE IVP PRN ×2 (08:38→12:47)
[2019-09-03] MEDS: DEXTROSE 5%-0.9% NACL 1,000 ML IV SCH ×2 (08:44→20:47)
[2019-09-03 11:53] VITALS: RESP 18
[2019-09-03] MEDS ORDERED: KETOROLAC 30 MG/ML 1 ML VIAL IVP PRN (14:34)
[2019-09-03] MEDS ORDERED: LORazepam 2 MG/ML INJ IV PRN (14:36)
[2019-09-03] MEDS ORDERED: NITROGLYCERIN SL TABS 0.4 MG TAB SUBLINGUAL PRN (15:32)
[2019-09-03] MEDS ORDERED: TEMAZEPAM 15 MG CAP PO PRN (15:35)
[2019-09-03] MEDS ORDERED: ALPRAZolam 0.25 MG TAB PO PRN (15:35)
--- NOTE | 2019-09-03 15:37 | CT ---
EXAMINATION TYPE: CT thor lumbar spine wo con DATE OF EXAM: 09/03/2019 COMPARISON: None HISTORY: back pain, no injury CT DLP: 2688.2 mGycm Automated exposure control for dose reduction was used. Multiple axial sections were obtained from the level of T1-S1 vertebra without contrast. FINDINGS: Thoracic and lumbar vertebra have fairly normal alignment. There is some osteopenia. There is no comp ression fracture. There is no significant disc space narrowing. There is no thoracic paraspinal mass. The posterior elements appear intact. There is 5 cm irregular masslike infiltrate left lower lobe un changed compared to chest CT scan today. I see no focal bone destruction. The visualized sacroiliac j oints are intact. IMPRESSION: Negative CT scan of the thoracic and lumbar spine. No fracture seen.
[2019-09-03] MEDS ORDERED: MORPHINE SULFATE IR 15 MG TABLET PO PRN (15:39)
[2019-09-03] MEDS ORDERED: MORPHINE SULFATE IR 15 MG TABLET PO SCH (16:00)
[2019-09-03] MEDS: HYDROmorphone 1 MG/ML 1 ML SYRINGE IVP PRN ×2 (16:45→21:19)
[2019-09-03] MEDS ORDERED: ONDANSETRON 4 MG/2 ML VIAL IVP PRN (17:20)
[2019-09-03 17:25] LABS: Glucose,Whole Blood 122 mg/dL (75-99)
[2019-09-03] MEDS: INSULIN ASPART (NovoLOG) 100 UNIT/ML VIAL SQ SCH ×2 (17:25→20:37)
[2019-09-03] MEDS ORDERED: PANTOPRAZOLE 40 MG TABLET PO SCH (17:30)
[2019-09-03] MEDS ORDERED: methylPREDNISolone SOD SUCCI 125 MG/2 ML VIAL IV SCH (18:00)
[2019-09-03] MEDS ORDERED: SYMBICORT 80-4.5 MCG INHALER INHALATION SCH (20:00)
[2019-09-03 20:34] VITALS: BP 151/83; PULSE 82; TEMP 98
[2019-09-03 20:37] LABS: Glucose,Whole Blood 148 mg/dL (75-99)
[2019-09-03] MEDS ORDERED: METOPROLOL TARTRATE 12.5 MG TAB PO SCH (21:00)
[2019-09-03] MEDS ORDERED: GABAPENTIN 100 MG CAP PO SCH (21:00)
[2019-09-03] MEDS ORDERED: MORPHINE SULFATE ER 30 MG TABLET PO SCH (21:00)
--- NOTE | 2019-09-04 | HP ---
HISTORY AND PHYSICAL This is a combined history and physical and discharge summary. DATE OF SERVICE: 09/03/2019 CHIEF COMPLAINT: Back pain and difficulty in walking. HISTORY OF PRESENT ILLNESS: This 64-year-old woman with a past medical history of asthma, CAD, COPD, fibromyalgia, GI bleed, history of CAD, stent, history of multiple sclerosis, being followed by Dr. Gu in the outpatient setting complaining of progressive weakness over the past several days. Patient also had back and chest pain. Patient [facility] night. The patient admitted for further evaluation and treatment. The CT scan showed possibly new onset left lower lobe malignant mass lesion. There is no history of any fever or rigors. No history of headache, loss of consciousness or seizures at this time. CT scan of the spine did not show any acute abnormality. PAST MEDICAL HISTORY: History of asthma, CAD, COPD, history of fibromyalgia, history of hyperlipidemia, history of CAD, stent, history of multiple sclerosis. MEDICATIONS: Medications are: 1. Copaxone. 2. Nitrostat. 3. Multivitamin. 4. Metoprolol. 5. Aspirin. 6. Iron sulfate. 7. Vitamin D3. 8. Claritin. 9. Advair. 10.Protonix. 11.MS-IR. 12.Myrbetriq. 13.Crestor. 14.MS Contin. 15.Neurontin. 16.Plavix. Doses are reviewed. ALLERGIES: Allergies are multiple allergies: PERCOCET, AMPICILLIN, LIPITOR, CIPRO, BENADRYL, DURAGESIC, IODINE, [place] SULFONAMIDE ANTIBIOTICS, ZITHROMAX, KEFLEX, OXYCONTIN, DARVON. FAMILY HISTORY: History of cancer and lupus in the family. SOCIAL HISTORY: No history of smoking. No history of alcohol intake. REVIEW OF SYSTEMS: ENT: Diminished hearing and diminished vision. CARDIOVASCULAR SYSTEM: No angina. RESPIRATORY SYSTEM: As mentioned earlier. GI: As mentioned earlier. : No dysuria. NERVOUS SYSTEM: As mentioned earlier. ALLERGY/IMMUNOLOGY: No history of asthma. MUSCULOSKELETAL: As mentioned earlier. HEMATOLOGY: No history of anemia. ENDOCRINE: No history of diabetes or hypothyroidism. CONSTITUTIONAL: As mentioned earlier. DERMATOLOGY: Negative. RHEUMATOLOGY: Negative. PSYCHIATRY: As mentioned earlier. PHYSICAL EXAMINATION: The patient is alert and oriented x3. Pulse 88, blood pressure 150/82, respiration 18, temperature 98.5, pulse ox 99% on 2 L. HEENT: Conjunctivae normal. Oral mucosa moist. NECK: No jugular venous distention. No carotid bruit. No lymph node enlargement. CARDIOVASCULAR: S1, S2 muffled. RESPIRATORY: Breath sounds diminished at the bases. No rhonchi, no crackles. ABDOMEN: Soft, obese, nontender. No mass palpable. LEGS: No edema, no swelling. NERVOUS SYSTEM: Higher function as mentioned earlier. Moves upper limbs. Lower limbs significant weakness, graded 2 to 3 power. Otherwise, sensory abnormalities up to T3 present. Otherwise: SKIN: No ulcer, rash or bleeding. JOINTS: No active deforming arthropathy. LYMPHATICS: No lymphadenopathy of the neck, axillae or groin. LABS: CBC within normal limits. Otherwise, D-dimer is 0.66. Glucose 112. C-reactive protein is 29.7. AST 37. ASSESSMENT: 1. Significant back pain and weakness at D3 level. Rule out spinal cord compression or tumor. 2. New onset left lower lobe mass lesion, rule out lung cancer. 3. History of asthma. 4. History of coronary artery disease, multiple stents. 5. History of chronic obstructive pulmonary disease. 6. Fibromyalgia. 7. History of gastrointestinal bleed. 8. Hyperlipidemia. 9. History of multiple sclerosis. 10.Gait dysfunction. 11.History of degenerative joint disease. 12.History of anxiety. 13.Obesity with body mass of 34.6. 14.FULL CODE. RECOMMENDATIONS AND DISCUSSION: This 64-year-old woman who presented with multiple complex medical issues, we will monitor the patient closely. Continue the current medications. Continues symptomatic treatment. Pain management with combination of Dilaudid. I would also initiate empiric steroids. Resume the home medication. Also discussed the case at length at [facility] for transfer to higher level of care because we do not have access to neurology or MRI scan over the weekend. Once again, the prognosis guarded and further recommendations to follow. Discussed with the patient and a copy of dictation forwarded to Dr. Gu who is the primary physician. SYDNEE / DONATO: [id number] /
[2019-09-04] MEDS ORDERED: CHOLECALCIFEROL 1,000 UNIT TAB PO SCH (09:00)
[2019-09-04] MEDS ORDERED: ASPIRIN 325 MG TAB PO SCH (09:00)
[2019-09-04] MEDS ORDERED: NON FORMULARY DRUG (Mirabegron [Myrbetriq] 25 MG) PO SCH (09:00)
[2019-09-04] MEDS ORDERED: LORATADINE 10 MG TAB PO SCH (09:00)
[2019-09-04] MEDS ORDERED: NON FORMULARY DRUG (Glatiramer Acetate [Copaxone] 40 MG) SQ SCH (09:00)
[2019-09-04] MEDS ORDERED: ROSUVASTATIN CALCIUM 20 MG PO SCH (09:00)
[2019-09-04] MEDS ORDERED: CLOPIDOGREL 75 MG TAB PO SCH (09:00)
[2019-09-04] MEDS ORDERED: MULTIVITAMINS, THERA 1 EACH TAB PO SCH (09:00)
[2019-09-04] MEDS ORDERED: FERROUS SULFATE 325 MG TAB PO SCH (09:00)
== END 2019-09-03 22:42 | disposition other institution (70) ==
LOC: EC 23:15 → 5NMEDONC 09-03 02:58
PROVIDERS: ADMIT Hospitalist; ATTEND Hospitalist
DX: R07.9 Chest pain, unspecified (principal); M54.9 Dorsalgia, unspecified; R91.8 Other nonspecific abnormal finding of lung field; G35 Multiple sclerosis; R79.89 Other specified abnormal findings of blood chemistry; M79.7 Fibromyalgia; J44.9 Chronic obstructive pulmonary disease, unspecified; Z20.828 Contact with and (suspected) exposure to other viral communicable diseases; I25.10 Atherosclerotic heart disease of native coronary artery without angina pectoris; E78.5 Hyperlipidemia, unspecified; M19.90 Unspecified osteoarthritis, unspecified site; H57.9 Unspecified disorder of eye and adnexa; F41.9 Anxiety disorder, unspecified; R26.2 Difficulty in walking, not elsewhere classified; E66.9 Obesity, unspecified; Z68.35 Body mass index [BMI] 35.0-35.9, adult; Z79.82 Long term (current) use of aspirin; Z79.51 Long term (current) use of inhaled steroids; Z79.02 Long term (current) use of antithrombotics/antiplatelets; Z79.899 Other long term (current) drug therapy; Z79.891 Long term (current) use of opiate analgesic; Z88.6 Allergy status to analgesic agent; Z88.1 Allergy status to other antibiotic agents; Z88.5 Allergy status to narcotic agent; Z88.0 Allergy status to penicillin; Z88.2 Allergy status to sulfonamides; Z88.8 Allergy status to other drugs, medicaments and biological substances; Z91.048 Other nonmedicinal substance allergy status; Z87.19 Personal history of other diseases of the digestive system; Z96.60 Presence of unspecified orthopedic joint implant; Z95.5 Presence of coronary angioplasty implant and graft; Z90.49 Acquired absence of other specified parts of digestive tract; Z90.710 Acquired absence of both cervix and uterus; Z82.69 Family history of other diseases of the musculoskeletal system and connective tissue; Z80.49 Family history of malignant neoplasm of other genital organs
CPT/HCPCS: 96376; 96375; 96372; 96374; 99285; 36415; 94640; 93005; 85379; 80053; 85652; 83735; 84484; 85025; 85610; 85730; 86140; 71046; 72128; 72131; 71275; G0378; U0003; J2060; J2270; J2930; J2405; J1170 ×2; Q9967

== ENCOUNTER 2019-09-22 20:57 | Inpatient (IN) | payer MEDICARE, OTHER ==
[2019-09-22 21:24] LABS: Basophils % (A) 0 %; Eosinophils # (A) 0.1 k/uL (0-0.7); Eosinophils % (A) 1 %; HCT 42.7 % (34.0-46.0); HGB 13.3 gm/dL (11.4-16.0); Hypochromasia Marked; Lymphocytes # (A) 0.3 k/uL (1.0-4.8); Lymphocytes % (A) 1 %; MCH 27.2 pg (25.0-35.0); MCHC 31.1 g/dL (31.0-37.0); MCV 87.6 fL (80.0-100.0); Monocytes # (A) 0.7 k/uL (0-1.0); Monocytes % (A) 3 %; Neutrophils % (A) 95 %; Platelet Count 317 k/uL (150-450); RBC 4.87 m/uL (3.80-5.40); RDW 14.2 % (11.5-15.5); WBC 25.2 k/uL (3.8-10.6)
[2019-09-22] MEDS ORDERED: SODIUM CHLORIDE 0.9% 500 ML 500 ML IV ONE (21:26)
[2019-09-22 21:34] LABS: ALT 24 U/L (4-34); AST 23 U/L (14-36); African American GFR (CKD) >90 (>60 ml/min/1.73 sqM); Albumin 3.4 g/dL (3.5-5.0); Alkaline Phosphatase 99 U/L (38-126); Anion Gap 11 mmol/L; Blood Urea Nitrogen 32 mg/dL (7-17); Calcium 9.5 mg/dL (8.4-10.2); Carbon Dioxide 24 mmol/L (22-30); Chloride 102 mmol/L (98-107); Glucose 170 mg/dL (74-99); Magnesium 2.2 mg/dL (1.6-2.3); Non-African American GFR(CKD) >90 (>60 ml/min/1.73 sqM); Potassium 3.9 mmol/L (3.5-5.1); Sodium 137 mmol/L (137-145); Total Bilirubin 0.4 mg/dL (0.2-1.3)
[2019-09-22 21:46] LABS: Prothrombin Time 10.7 sec (9.0-12.0)
--- NOTE | 2019-09-22 21:47 | ED ---
Chest Pain HPI - General Source: patient, EMS Mode of arrival: EMS Limitations: no limitations <Trever Linn - Last Filed: 09/22/19 23:36> <Patricio Cason - Last Filed: 09/25/19 07:50> - General Chief Complaint: Chest Pain Stated Complaint: chest pain Time Seen by Provider: 09/22/19 20:59 - History of Present Illness Initial Comments: Patient is a 64-year-old female history of lung cancer, CAD, COPD, MS presenting to the emergency department chief complaint of chest pain. Patient states the chest pain is located in the midsternal region with radiation to bilateral shoulders and the neck. Patient states this is been ongoing since August 08. Patient also reported shortness of breath has been on going since then. Patient denies any lightheadedness or dizziness. States she is also feeling short of breath along with wheezing. She does have COPD so the shortness of breath is somewhat her baseline. Patient states she underwent radiation therapy for a lung cancer but supposedly it was not effective. Stay she took aspirin at home today but does not know how much. Denies any night sweats fevers or chills at home. (Trever Linn) - Related Data Home Medications Medication Instructions Recorded Confirmed Aspirin 325 mg PO DAILY 12/28/13 09/22/19 Metoprolol Tartrate 12.5 mg PO BID 12/28/13 09/22/19 Nitroglycerin Sl Tabs [Nitrostat] 0.4 mg SL Q5M PRN 12/28/13 09/22/19 Loratadine [Claritin] 10 mg PO DAILY 03/18/14 09/22/19 Rosuvastatin Calcium [Crestor] 20 mg PO DAILY 01/06/15 09/22/19 Glatiramer Acetate [Copaxone] 40 mg SQ MOWEFR 01/07/15 09/22/19 Morphine Sulfate ER [Ms Contin] 30 mg PO TID 01/07/15 09/22/19 Fluticasone/Salmeterol [Advair 1 puff INHALATION RT-BID 09/16/15 09/22/19 250-50 Diskus] Mirabegron [Myrbetriq] 25 mg PO DAILY 09/03/19 09/22/19 Pantoprazole Sodium [Protonix] 40 mg PO BID 09/03/19 09/22/19 Albuterol Nebulized (Conc) 2.5 mg INHALATION RT-QID 09/22/19 09/22/19 [Ventolin Nebulized (Conc)] Ascorbic Acid [Vitamin C] 500 mg PO DAILY 09/22/19 09/22/19 Budesonide [Pulmicort] 0.5 mg INHALATION RT-BID 09/22/19 09/22/19 Dexamethasone [Decadron] See Taper PO DAILY 09/22/19 09/22/19 Gabapentin 300 mg PO TID 09/22/19 09/22/19 Methocarbamol [Robaxin-750] 750 mg PO TID 09/22/19 09/22/19 Mometasone Furoate [Nasonex Nasal 2 spr EA NOSTRIL DAILY 09/22/19 09/22/19 [place]] Morphine Sulfate Ir [MSIR] 15 mg PO Q4H PRN 09/22/19 09/22/19 Omeprazole 40 mg PO DAILY 09/22/19 09/22/19 Ondansetron HCl [Zofran] 4 mg PO Q8H PRN 09/22/19 09/22/19 Psyllium Husk [Metamucil] 0.4 gm PO DAILY 09/22/19 09/22/19 Sennosides/Docusate Sodium 1 each PO BID 09/22/19 09/22/19 [Senna-S 8.6-50 mg Tablet] Sucralfate [Carafate] 0.5 gm PO TID 09/22/19 09/22/19 Zinc Sulfate 220 mg PO DAILY 09/22/19 09/22/19 Allergies Allergy/AdvReac Type Severity Reaction Status Date / Time acetaminophen [From Percocet] Allergy Anaphylaxis Verified 09/22/19 21:41 ampicillin Allergy Rash/Hives Verified 09/22/19 21:41 atorvastatin calcium Allergy Unknown Verified 09/22/19 21:41 [From Lipitor] ciprofloxacin HCl Allergy Rash/Hives Verified 09/22/19 21:41 [From Cipro] diphenhydramine HCl Allergy Unknown Verified 09/22/19 21:41 [From Benadryl] fentanyl [From Duragesic] Allergy Unknown Verified 09/22/19 21:41 iodine Allergy Rash/Hives Verified 09/22/19 21:41 oxymorphone HCl [From Opana] Allergy Unknown Verified 09/22/19 21:41 Sulfa (Sulfonamide Allergy Unknown Verified 09/22/19 21:41 Antibiotics) azithromycin [From Zithromax] AdvReac Nausea Verified 09/22/19 21:41 cephalexin monohydrate AdvReac Nausea Verified 09/22/19 21:41 [From Keflex] oxycodone HCl AdvReac Hallucinati Verified 09/22/19 21:41 [From OxyContin] ons propoxyphene HCl AdvReac Nausea Verified 09/22/19 21:41 [From Darvon] Review of Systems ROS Other: All systems not noted in ROS Statement are negative. <Trever Linn - Last Filed: 09/22/19 23:36> ROS Other: All systems not noted in ROS Statement are negative. <Patricio Cason - Last Filed: 09/25/19 07:50> ROS Statement: Those systems with pertinent positive or pertinent negative responses have been documented in the HPI. Past Medical History Past Medical History: Asthma, Coronary Artery Disease (CAD), Chest Pain / Angina, COPD, Eye Disorder, Fibromyalgia, GI Bleed, Hyperlipidemia, Neurologic Disorder, Osteoarthritis (OA) Additional Past Medical History / Comment(s): MS History of Any Multi-Drug Resistant Organisms: None Reported Past Surgical History: Appendectomy, Heart Catheterization With Stent, H ysterectomy, Joint Replacement, Orthopedic Surgery Additional Past Surgical History / Comment(s): CARDIAC STENTS 10 Past Anesthesia/Blood Transfusion Reactions: No Reported Reaction Date of Last Stent Placement:: 2008 Past Psychological History: Anxiety Smoking Status: Former smoker Past Alcohol Use History: None Reported Past Drug Use History: None Reported - Past Family History Mother Additional Family Medical History / Comment(s): Lupus Sister(s) Family Medical History: Cancer Additional Family Medical History / Comment(s): Uterus <Trever Linn - Last Filed: 09/22/19 23:36> General Exam Limitations: no limitations General appearance: alert, in no apparent distress, obese Head exam: Present: atraumatic, normocephalic, normal inspection Eye exam: Present: normal appearance, PERRL, EOMI Pupils: Present: normal accommodation ENT exam: Present: normal exam, normal oropharynx, mucous membranes dry Neck exam: Present: normal inspection, full ROM. Absent: tenderness Respiratory exam: Present: wheezes (Bilateral wheezing, diffusely.) Cardiovascular Exam: Present: regular rate, normal rhythm, normal heart sounds Extremities exam: Present: normal inspection, full ROM, normal capillary refill. Absent: tenderness Back exam: Present: normal inspection, full ROM. Absent: tenderness Neurological exam: Present: alert, oriented X3 Psychiatric exam: Present: normal affect, normal mood Skin exam: Present: warm, dry, intact, normal color <Trever Linn - Last Filed: 09/22/19 23:36> Course Vital Signs 09/22/19 09/22/19 09/22/19 20:58 22:06 23:01 Temperature 98.9 F 98.2 F Pulse Rate 122 H 123 H 113 H Respiratory 20 20 Rate Blood Pressure 140/93 137/80 O2 Sat by Pulse 93 L 96 Oximetry 09/22/19 09/23/19 23:12 01:05 Temperature 98.3 F Pulse Rate 118 H 107 H Respiratory 18 Rate Blood Pressure 112/74 O2 Sat by Pulse 95 Oximetry Chest Pain MDM <Trever Linn - Last Filed: 09/22/19 23:36> <Patricio Cason - Last Filed: 09/25/19 07:50> - MDM Patient is 64-year-old female with history of MS, CAD, COPD, lung cancer presenting to the emergency room a chief complaint of chest pain. Medical boris rds reviewed. Patient is common in with midsternal chest pain radiating to bilateral shoulders and neck. Shortness of breath worse than baseline. On exam patient does have audible wheezing. States the pain is 10/10. Patient given pain control, Decadron, DuoNeb. Reevaluation patient reports the pain has been significantly improved. The wheezing is also been greatly improved. Patient states she is able to breathe better right now. Patient has leukocytosis. Blood culture pending. Lactate within normal limits. Troponin negative. Elevated d-dimer. CT chest and a pending. At this time patient care transferred to (Trever Linn) I saw this patient in conjunction with the physician speech language assistant. I performed independent history and physical exam. Agree with case management. (Patricio Cason) Disposition Is patient prescribed a controlled substance at d/c from ED?: No Time of Disposition: 23:40 <Trever Linn - Last Filed: 09/22/19 23:36> <Patricio Cason - Last Filed: 09/25/19 07:50> Clinical Impression: Chest pain, COPD exacerbation Disposition: ADMITTED IP TO THIS HOSP Condition: Fair
[2019-09-22 21:49] LABS: Partial Thromboplastin Time 19.2 sec (22.0-30.0)
[2019-09-22] MEDS ORDERED: IPRATROPIUM-ALBUTEROL 3 ML NEB INHALATION STA (22:09)
[2019-09-22] MEDS ORDERED: DEXAMETHASONE SOD PHOSPHATE 10 MG/ML 1 ML VIAL IV STA (22:09)
[2019-09-22] MEDS ORDERED: HYDROmorphone 1 MG/ML 1 ML SYRINGE IVP STA (22:09)
[2019-09-22] MEDS ORDERED: ALBUTEROL NEBULIZED 2.5 MG/3 ML INHALATION STA (22:09)
--- NOTE | 2019-09-22 22:11 | XR ---
EXAMINATION TYPE: XR chest 2V DATE OF EXAM: 09/22/2019 COMPARISON: 09/02/2019 HISTORY: Chest pain TECHNIQUE: FINDINGS: Heart is normal. Thoracic aorta is atheromatous. There is increased density on the lateral view over the lower thoracic spine. This is some masslike infiltrate similar to old exam. There is i ncreased density at the aortopulmonary window and azygous region consistent with some mediastinal deni nopathy. There are chest leads. There is no heart failure. Bony thorax is intact. IMPRESSION: Abnormalities as above appear not significantly different than recent exam. No heart fail ure. Normal heart.
[2019-09-22] MEDS ORDERED: diphenhydrAMINE 50 MG/ML 1 ML VIAL IVP STA (22:53)
[2019-09-22] MEDS ORDERED: FAMOTIDINE 20 MG/2 ML VIAL IV STA (22:55)
[2019-09-22] MEDS ORDERED: NALOXONE 0.4 MG/ML 1 ML VIAL IV PRN (23:34)
[2019-09-22] MEDS ORDERED: ONDANSETRON 4 MG/2 ML VIAL IVP PRN (23:34)
[2019-09-22] MEDS ORDERED: HYDROmorphone 1 MG/ML 1 ML SYRINGE IVP PRN (23:34)
[2019-09-22] MEDS ORDERED: LORazepam 2 MG/ML INJ IV PRN (23:34)
--- NOTE | 2019-09-22 23:51 | CT ---
EXAMINATION TYPE: CT chest angio for PE DATE OF EXAM: 09/22/2019 COMPARISON: 09/03/2019 HISTORY: sob CT DLP: 527 mGycm Automated exposure control for dose reduction was used. CONTRAST: Performed with IV Contrast, patient injected with 70 mL of Isovue 370. Images obtained with 3-D post processed images from the thoracic inlet to the diaphragm. There is some coarse groundglass mild interstitial infiltrate in the lungs. There is 3.3 cm masslike area of consolidation in the left lower lobe below the left pulmonary hilum. Heart size is normal. I see no filling defects in the pulmonary arteries. There is some retained fluid in the thoracic esopha delores. There are increased anterior mediastinal lymph nodes that measure up to 13 mm. Thoracic aorta sh ows no dissection. The ascending aorta measures 3.3 cm. There is 1.5 cm enlarged subcarinal lymph node. There is no pleural effusion. There is no pericardial effusion. Thoracic spine appears intact. There is no significant compression deformity. IMPRESSION: Masslike infiltrate left lower lobe unchanged compared to recent exam and suspicious for malignancy. Mediastinal adenopathy unchanged. No evidence of pulmonary embolism.
[2019-09-23] MEDS ORDERED: HEPARIN SODIUM,PORCINE 5,000 UNIT/ML 1 ML VIAL IV PRN (00:17)
[2019-09-23] MEDS ORDERED: HEPARIN SODIUM,PORCINE 10,000 UNIT/ML 1 ML VIAL IV ONE (00:17)
--- NOTE | 2019-09-23 00:46 | US ---
EXAMINATION TYPE: US venous doppler duplex LE BI DATE OF EXAM: 09/23/2019 12:24 AM COMPARISON: US CLINICAL HISTORY: elevated d-dimer. Bilateral LE swelling; patient stated was diagnosed recently with Lung CA; no feeling below waist or use of LE; chest pain SIDE PERFORMED: Bilateral TECHNIQUE: The lower extremity deep venous system is examined utilizing real time linear array sonog gómez with graded compression, doppler sonography and color-flow sonography. VESSELS IMAGED: Common Femoral Vein (CFV) Deep Femoral Vein (DFV) Greater Saphenous Vein * Femoral Vein Popliteal Vein Small Saphenous Vein * Proximal Calf Veins (* superficial vessels) Right Leg: Positive for non occluding DVT in CFV, Femoral Vein and is positive for occluding DVT in upper Deep Femoral Vein. Incomplete vein compression is noted Right CFV, Femoral Vein, and upper DFV. Left Leg: Positive for nonoccluding DVT in upper and mid Femoral Vein with PW Doppler documented in distal Femoral Vein, but vein compression is not achieved in Left Femoral Vein, and upper DFV. Tech findings reported to patient's RN, Sharon, at exam's end. JJ IMPRESSION: The exam shows acute and chronic deep vein thrombosis in the right leg in the femoral ve in. Left leg show some chronic deep vein thrombosis. Acute deep vein thrombosis in the left leg is also p ossible.
[2019-09-23] MEDS: HEPARIN SOD,PORK IN 0.45% NACL 25,000 UNIT in 0.45% NACL 1 250ML.BAG IV SCH ×2 (01:03→17:56)
[2019-09-23] MEDS: HYDROmorphone 0.5 MG/0.5 ML SYRINGE IVP PRN ×3 (01:54→10:35)
--- NOTE | 2019-09-23 09:45 | P.HPIM ---
History of Present Illness This is a pleasant 64 years old female with multiple medical problems as below. Patient recently was diagnosed with lung cancer, she follow up with [facility] and she got radiotherapy by 3 days ago but she did not started on chemotherapy yet as per patient. She lives at home and she has 24-hour home care. Since last month of 08/13 patient became bedridden, because she thinks she has metastasis to the spine, she has no feeling from the waist down, she cannot move her lower extremity, she is constipated and she has no control and her urine, she keeps her back and neck extended. Also patient states that she has metastasis to the brain. She came because of chest pain for about one month but get worse lately that's why she came to the hospital. She is not really dyspneic or coughing. Vitals and labs were reviewed, patient was tachycardic on admission 122 currently is better at 107, she has leukocytosis of 25.2, elevated d-dimer at 4.2, unremarkable BMP and liver enzymes. EKG showing sinus tachycardia at [address]-T changes. Chest x- ray: Left lower mass like infiltrate CTA was negative for PE but masslike infiltrate of the left lower lung, Doppler is positive for nonocclusive right DVT and left DVT Patient was started on heparin drip. Emergency room patient was started on dexamethasone and heparin drip and pain medication Review of Systems CONSTITUTIONAL: No fever, no malaise, no fatigue. HEENT: No recent visual problems or hearing problems. Denied any sore throat. CARDIOVASCULAR: No orthopnea, PND, no palpitations, no syncope. PULMONARY: No shortness of breath, no cough, no hemoptysis. GASTROINTESTINAL: No diarrhea, no nausea, no vomiting, no abdominal pain. Normoactive bowel sounds. NEUROLOGICAL: No headaches, no weakness, no numbness. HEMATOLOGICAL: Denies any bleeding or petechiae. GENITOURINARY: Denies any burning micturition, frequency, or urgency. MUSCULOSKELETAL/RHEUMATOLOGICAL: Denies any joint pain, swelling, or any muscle pain. ENDOCRINE: Denies any polyuria or polydipsia. Past Medical History Past Medical History: Asthma, Coronary Artery Disease (CAD), Chest Pain / Angina, COPD, Eye Disorder, Fibromyalgia, GI Bleed, Hyperlipidemia, Neurologic Disorder, Osteoarthritis (OA) Additional Past Medical History / Comment(s): MS, lung biopsy 08/15 at [facility] History of Any Multi-Drug Resistant Organisms: None Reported Past Surgical History: Appendectomy, Heart Catheterization With Stent, Hysterectomy, Joint Replacement, Orthopedic Surgery Additional Past Surgical History / Comment(s): CARDIAC STENTS 10 Past Anesthesia/Blood Transfusion Reactions: No Reported Reaction Date of Last Stent Placement:: 2008 Past Psychological History: Anxiety Smoking Status: Former smoker Past Alcohol Use History: None Reported Past Drug Use History: None Reported - Past Family History Mother Additional Family Medical History / Comment(s): Lupus Sister(s) Family Medical History: Cancer Additional Family Medical History / Comment(s): Uterus Medications and Allergies Home Medications Medication Instructions Recorded Confirmed Type Aspirin 325 mg PO DAILY 12/28/13 09/22/19 History Metoprolol Tartrate 12.5 mg PO BID 12/28/13 09/22/19 History Nitroglycerin Sl Tabs [Nitrostat] 0.4 mg SL Q5M PRN 12/28/13 09/22/19 History Loratadine [Claritin] 10 mg PO DAILY 03/18/14 09/22/19 History Rosuvastatin Calcium [Crestor] 20 mg PO DAILY 01/06/15 09/22/19 History Glatiramer Acetate [Copaxone] 40 mg SQ MOWEFR 01/07/15 09/22/19 History Morphine Sulfate ER [Ms Contin] 30 mg PO TID 01/07/15 09/22/19 History Fluticasone/Salmeterol [Advair 1 puff INHALATION RT-BID 09/16/15 09/22/19 History 250-50 Diskus] Mirabegron [Myrbetriq] 25 mg PO DAILY 09/03/19 09/22/19 History Pantoprazole Sodium [Protonix] 40 mg PO BID 09/03/19 09/22/19 History Albuterol Nebulized (Conc) 2.5 mg INHALATION RT-QID 09/22/19 09/22/19 History [Ventolin Nebulized (Conc)] Ascorbic Acid [Vitamin C] 500 mg PO DAILY 09/22/19 09/22/19 History Budesonide [Pulmicort] 0.5 mg INHALATION RT-BID 09/22/19 09/22/19 History Dexamethasone [Decadron] See Taper PO DAILY 09/22/19 09/22/19 History Gabapentin 300 mg PO TID 09/22/19 09/22/19 History Methocarbamol [Robaxin-750] 750 mg PO TID 09/22/19 09/22/19 History Mometasone Furoate [Nasonex Nasal 2 spr EA NOSTRIL DAILY 09/22/19 09/22/19 History [place]] Morphine Sulfate Ir [MSIR] 15 mg PO Q4H PRN 09/22/19 09/22/19 History Omeprazole 40 mg PO DAILY 09/22/19 09/22/19 History Ondansetron HCl [Zofran] 4 mg PO Q8H PRN 09/22/19 09/22/19 History Psyllium Husk [Metamucil] 0.4 gm PO DAILY 09/22/19 09/22/19 History Sennosides/Docusate Sodium 1 each PO BID 09/22/19 09/22/19 History [Senna-S 8.6-50 mg Tablet] Sucralfate [Carafate] 0.5 gm PO TID 09/22/19 09/22/19 History Zinc Sulfate 220 mg PO DAILY 09/22/19 09/22/19 History Allergies Allergy/AdvReac Type Severity Reaction Status Date / Time acetaminophen [From Percocet] Allergy Anaphylaxis Verified 09/22/19 21:41 ampicillin Allergy Rash/Hives Verified 09/22/19 21:41 atorvastatin calcium Allergy Unknown Verified 09/22/19 21:41 [From Lipitor] ciprofloxacin HCl Allergy Rash/Hives Verified 09/22/19 21:41 [From Cipro] diphenhydramine HCl Allergy Unknown Verified 09/22/19 21:41 [From Benadryl] fentanyl [From Duragesic] Allergy Unknown Verified 09/22/19 21:41 iodine Allergy Rash/Hives Verified 09/22/19 21:41 oxymorphone HCl [From Opana] Allergy Unknown Verified 09/22/19 21:41 Sulfa (Sulfonamide Allergy Unknown Verified 09/22/19 21:41 Antibiotics) azithromycin [From Zithromax] AdvReac Nausea Verified 09/22/19 21:41 cephalexin monohydrate AdvReac Nausea Verified 09/22/19 21:41 [From Keflex] oxycodone HCl AdvReac Hallucinati Verified 09/22/19 21:41 [From OxyContin] ons propoxyphene HCl AdvReac Nausea Verified 09/22/19 21:41 [From Darvon] Physical Exam Vitals: Vital Signs Temp Pulse Pulse Resp BP BP Pulse Ox 09/23/19 08:00 98.5 F 83 18 119/76 97 09/23/19 04:00 98.2 F 92 18 118/66 94 L 09/23/19 01:38 98.5 F 109 H 18 149/65 95 09/23/19 01:05 98.3 F 107 H 18 112/74 95 09/22/19 23:12 118 H 09/22/19 23:01 113 H 09/22/19 22:06 98.2 F 123 H 20 137/80 96 09/22/19 20:58 98.9 F 122 H 20 140/93 93 L Intake and Output 09/22/19 09/23/19 09/23/19 22:59 06:59 14:59 Intake Total 153.43 Output Total 50 Balance -50 153.43 Intake: Intake, IV Titration 153.43 Amount Heparin Sod,Pork in 0.45% 153.43 NaCl 25,000 unit In 0.45 % NaCl 1 250ml.bag @ 18 UNITS/KG/HR 20.412 mls/hr IV .[id number] [facility] Rx#: [id number] Output: Urine 50 Other: # Voids 1 Weight 113.398 kg 93.5 kg GENERAL: The patient is alert and oriented x3, not in any acute distress. Well developed, well nourished. HEENT: Pupils are round and equally reacting to light. EOMI. No scleral icterus. No conjunctival pallor. Normocephalic, atraumatic. No pharyngeal erythema. No thyromegaly. CARDIOVASCULAR: S1 and S2 present. No murmurs, rubs, or gallops. PULMONARY: Chest is clear to auscultation, no wheezing or crackles. ABDOMEN: Soft, nontender, nondistended, normoactive bowel sounds. No palpable organomegaly. MUSCULOSKELETAL: No joint swelling or deformity. EXTREMITIES: No cyanosis, clubbing, or pedal edema. NEUROLOGICAL: Gross neurological examination did not reveal any focal deficits. SKIN: No rashes. No petechiae Results CBC & Chem 7: 09/22/19 21:16 09/22/19 21:16 Labs: Abnormal Lab Results - Last 24 Hours (Table) 09/22/19 09/22/19 09/22/19 Range/Units 21:16 21:16 21:16 WBC 25.2 H (3.8-10.6) k/uL Neutrophils # 24.0 H (1.3-7.7) k/uL Lymphocytes # 0.3 L (1.0-4.8) k/uL APTT 19.2 L (22.0-30.0) sec D-Dimer (<0.60) mg/L FEU BUN 32 H (7-17) mg/dL Glucose 170 H (74-99) mg/dL Total Protein 6.0 L (6.3-8.2) g/dL Albumin 3.4 L (3.5-5.0) g/dL 09/22/19 09/23/19 Range/Units 21:16 06:44 WBC (3.8-10.6) k/uL Neutrophils # (1.3-7.7) k/uL Lymphocytes # (1.0-4.8) k/uL APTT >200.0 H* (22.0-30.0) sec D-Dimer 4.21 H (<0.60) mg/L FEU BUN (7-17) mg/dL Glucose (74-99) mg/dL Total Protein (6.3-8.2) g/dL Albumin (3.5-5.0) g/dL Thrombosis Risk Factor Assmnt - Choose All That Apply Each Risk Factor Represents 2 Points: Age 61-74 years Thrombosis Risk Factor Assessment Total Risk Factor Score: 2 Thrombosis Risk Factor Assessment Level: Low Risk Assessment and Plan Assessment: The left lower 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, status post radiotherapy High suspicion for spinal cord compression, patient is bedbound since 08/13 with loss of sensation and urine incontinence and constipation Chest pain, most likely is referred pain from her metastasis to the spine, however 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 Continue with heparin drip. Consult oncology team and neurology. Continue with dexamethasone. She's the patient has weakness/paralysis of her lower extremity since 08/13 as per patient, the chances of recovery of low if she has spinal cord compression. Pain management Labs and medication were reviewed.. Continue same treatment. Continue with symptomatic treatment. Resume home medication. Monitor lytes and vitals. DVT and GI prophylaxis. Further recommendations of the clinical course of the patient DVT prophylaxis:s heparin GI Prophylaxis: Pepcid PT/OT: Pending Prognosis is guarded
--- NOTE | 2019-09-23 11:00 | P.CONS ---
History of Present Illness - Reason for Consult Consult date: 09/23/19 Lung cancer, Back pain - History of Present Illness The patient is a 62-year-old white female with multiple medical problems, including history of chronic pain and multiple sclerosis. The patient had come into the hospital in early 09/17, with recurrent complains of severe back pain and lower extremity weakness. At that time computed tomography scan of the chest was performed showing a new left lower lung mass that was suspicious for malignancy. The patient at that time was also complaining of severe back pain a nd lower extremity weakness due to which she was transfer to [facility]. Her course at [facility] is not known. The patient came back to the hospital today, with recurrent complains of severe back pain which she states is intractable. She also states that she fell and sustained trauma to her lower extremities and the left upper extremity. According to the patient she has mar kedly decreased sensation from the mid chest downwards and cannot move her right lower extremity at all. She reports some strength in the left lower extremity. The patient is a very poor historian and emotionally labile. She states that she was diagnosed with lung cancer and was told that she has spread to the brain and the spine. According to the patient the diagnosis was made here. She was then advised that we do not have any record of biopsy here. He then stated that it may have been done at [facility]. According to the patient she has not had any systemic therapy but has received radiation. She is also not clear as to where the radiation was given, whether to the back, brain, lung. She did state that her last radiation was 3 days ago. She was therefore admitted for further management and consult placed Review of Systems Constitutional: Reports chronic pain, Reports fatigue, Reports weakness Eyes: denies blurred vision, denies pain Ears: deny: decreased hearing, ear discharge, earache, tinnitus Ears, nose, mouth and throat: Denies headache, Denies sore throat Cardiovascular: Reports dyspnea on exertion Respiratory: Reports dyspnea Gastrointestinal: Reports as per HPI (States bowel sensation and control is markedly diminished), Reports constipation Genitourinary: Reports mixed incontinence (Due to decreased sensation) Menstruation: Reports postmenopausal Musculoskeletal: Reports low back pain, Reports muscle weakness, Reports neck pain Integumentary: Reports unusual bruising Neurological: Reports as per HPI, Reports change in speech, Reports gait dysfunction, Reports motor disturbance, Reports numbness, Reports paralysis, Reports weakness Psychiatric: Reports anxiety, Reports confusion Endocrine: Reports fatigue Hematologic/Lymphatic: Reports as per HPI Past Medical History Past Medical History: Asthma, Coronary Artery Disease (CAD), Chest Pain / Angina, COPD, Eye Disorder, Fibromyalgia, GI Bleed, Hyperlipidemia, Neurologic Disorder, Osteoarthritis (OA) Additional Past Medical History / Comment(s): MS, lung biopsy 08/15 at [facility] History of Any Multi-Drug Resistant Organisms: None Reported Past Surgical History: Appendectomy, Heart Catheterization With Stent, Hysterectomy, Joint Replacement, Orthopedic Surgery Additional Past Surgical History / Comment(s): CARDIAC STENTS 10 Past Anesthesia/Blood Transfusion Reactions: No Reported Reaction Date of Last Stent Placement:: 2008 Past Psychological History: Anxiety Smoking Status: Former smoker Past Alcohol Use History: None Reported Past Drug Use History: None Reported - Past Family History Mother Additional Family Medical History / Comment(s): Lupus Sister(s) Family Medical History: Cancer Additional Family Medical History / Comment(s): Uterus Medications and Allergies Home Medications Medication Instructions Recorded Confirmed Type Aspirin 325 mg PO DAILY 12/28/13 09/22/19 History Metoprolol Tartrate 12.5 mg PO BID 12/28/13 09/22/19 History Nitroglycerin Sl Tabs [Nitrostat] 0.4 mg SL Q5M PRN 12/28/13 09/22/19 History Loratadine [Claritin] 10 mg PO DAILY 03/18/14 09/22/19 History Rosuvastatin Calcium [Crestor] 20 mg PO DAILY 01/06/15 09/22/19 History Glatiramer Acetate [Copaxone] 40 mg SQ MOWEFR 01/07/15 09/22/19 History Morphine Sulfate ER [Ms Contin] 30 mg PO TID 01/07/15 09/22/19 History Fluticasone/Salmeterol [Advair 1 puff INHALATION RT-BID 09/16/15 09/22/19 History 250-50 Diskus] Mirabegron [Myrbetriq] 25 mg PO DAILY 09/03/19 09/22/19 History Pantoprazole Sodium [Protonix] 40 mg PO BID 09/03/19 09/22/19 History Albuterol Nebulized (Conc) 2.5 mg INHALATION RT-QID 09/22/19 09/22/19 History [Ventolin Nebulized (Conc)] Ascorbic Acid [Vitamin C] 500 mg PO DAILY 09/22/19 09/22/19 History Budesonide [Pulmicort] 0.5 mg INHALATION RT-BID 09/22/19 09/22/19 History Dexamethasone [Decadron] See Taper PO DAILY 09/22/19 09/22/19 History Gabapentin 300 mg PO TID 09/22/19 09/22/19 History Methocarbamol [Robaxin-750] 750 mg PO TID 09/22/19 09/22/19 History Mometasone Furoate [Nasonex Nasal 2 spr EA NOSTRIL DAILY 09/22/19 09/22/19 History [place]] Morphine Sulfate Ir [MSIR] 15 mg PO Q4H PRN 09/22/19 09/22/19 History Omeprazole 40 mg PO DAILY 09/22/19 09/22/19 History Ondansetron HCl [Zofran] 4 mg PO Q8H PRN 09/22/19 09/22/19 History Psyllium Husk [Metamucil] 0.4 gm PO DAILY 09/22/19 09/22/19 History Sennosides/Docusate Sodium 1 each PO BID 09/22/19 09/22/19 History [Senna-S 8.6-50 mg Tablet] Sucralfate [Carafate] 0.5 gm PO TID 09/22/19 09/22/19 History Zinc Sulfate 220 mg PO DAILY 09/22/19 09/22/19 History Allergies Allergy/AdvReac Type Severity Reaction Status Date / Time acetaminophen [From Percocet] Allergy Anaphylaxis Verified 09/22/19 21:41 ampicillin Allergy Rash/Hives Verified 09/22/19 21:41 atorvastatin calcium Allergy Unknown Verified 09/22/19 21:41 [From Lipitor] ciprofloxacin HCl Allergy Rash/Hives Verified 09/22/19 21:41 [From Cipro] diphenhydramine HCl Allergy Unknown Verified 09/22/19 21:41 [From Benadryl] fentanyl [From Duragesic] Allergy Unknown Verified 09/22/19 21:41 iodine Allergy Rash/Hives Verified 09/22/19 21:41 oxymorphone HCl [From Opana] Allergy Unknown Verified 09/22/19 21:41 Sulfa (Sulfonamide Allergy Unknown Verified 09/22/19 21:41 Antibiotics) azithromycin [From Zithromax] AdvReac Nausea Verified 09/22/19 21:41 cephalexin monohydrate AdvReac Nausea Verified 09/22/19 21:41 [From Keflex] oxycodone HCl AdvReac Hallucinati Verified 09/22/19 21:41 [From OxyContin] ons propoxyphene HCl AdvReac Nausea Verified 09/22/19 21:41 [From Darvon] Physical Exam Vitals: Vital Signs Temp Pulse Pulse Resp BP BP Pulse Ox 09/23/19 08:00 98.5 F 83 18 119/76 97 09/23/19 04:00 98.2 F 92 18 118/66 94 L 09/23/19 01:38 98.5 F 109 H 18 149/65 95 09/23/19 01:05 98.3 F 107 H 18 112/74 95 09/22/19 23:12 118 H 09/22/19 23:01 113 H 09/22/19 22:06 98.2 F 123 H 20 137/80 96 09/22/19 20:58 98.9 F 122 H 20 140/93 93 L Intake and Output 09/22/19 09/23/19 09/23/19 22:59 06:59 14:59 Intake Total 153.43 Output Total 50 Balance -50 153.43 Intake: Intake, IV Titration 153.43 Amount Heparin Sod,Pork in 0.45% 153.43 NaCl 25,000 unit In 0.45 % NaCl 1 250ml.bag @ 18 UNITS/KG/HR 20.412 mls/hr IV .[id number] [facility] Rx#: [id number] Output: Urine 50 Other: # Voids 1 Weight 113.398 kg 93.5 kg - Constitutional General appearance: mild distress - EENT Eyes: EOMI, PERRLA ENT: hearing grossly normal, normal oropharynx - Neck Neck: no lymphadenopathy Thyroid: bilateral: normal size - Respiratory Respiratory: bilateral: CTA - Cardiovascular Rhythm: regular Heart sounds: normal: S1, S2 - Gastrointestinal General gastrointestinal: normal bowel sounds, soft - Integumentary Extensive bruising a left upper extremity. Also scattered bruises in the left lower extremity - Neurologic Neurologic: CNII-XII intact, focal deficits (Marked weakness of both lower extremities. Strength 0/5 right lower extremity. 1/5 left lower extremity. Patient claims loss of sensation from essentially D4 dermatome downwards) - Musculoskeletal Musculoskeletal: right sided weakness, left sided weakness - Psychiatric Anxious, flight of ideas, recall appears to be significantly impaired Psychiatric: A&O x's 3 Results CBC & Chem 7: 09/22/19 21:16 09/22/19 21:16 Labs: Abnormal Lab Results - Last 24 Hours (Table) 09/22/19 09/22/19 09/22/19 Range/Units 21:16 21:16 21:16 WBC 25.2 H (3.8-10.6) k/uL Neutrophils # 24.0 H (1.3-7.7) k/uL Lymphocytes # 0.3 L (1.0-4.8) k/uL APTT 19.2 L (22.0-30.0) sec D-Dimer (<0.60) mg/L FEU BUN 32 H (7-17) mg/dL Glucose 170 H (74-99) mg/dL Total Protein 6.0 L (6.3-8.2) g/dL Albumin 3.4 L (3.5-5.0) g/dL 09/22/19 09/23/19 Range/Units 21:16 06:44 WBC (3.8-10.6) k/uL Neutrophils # (1.3-7.7) k/uL Lymphocytes # (1.0-4.8) k/uL APTT >200.0 H* (22.0-30.0) sec D-Dimer 4.21 H (<0.60) mg/L FEU BUN (7-17) mg/dL Glucose (74-99) mg/dL Total Protein (6.3-8.2) g/dL Albumin (3.5-5.0) g/dL Comments: CT thoracic and lumbar spine report reviewed Chest x-ray: report reviewed CT scan - chest: report reviewed Venous US: report reviewed Assessment and Plan (1) Lower extremity weakness Narrative/Plan: The patient has marked bilateral lower extremity weakness and also claims loss of sensation from the mid chest downwards. At the time of her presentation earlier this month, given new finding of lung mass there was concern for cord compression and the patient was transferred to [facility]. Her course that is not known. Patient states that she was told that she has metastasis to the spine. However CT of the thoracic and lumbar spine done on 09/03/19 showed no evidence whatsoever of the same. The situation was also completed by the patient being a very unreliable historian, and having prior history of chronic pain and multiple sclerosis. - Case was discussed with the admitting service. At this time the patient will be placed on steroids. We will request records including any imaging from [facility]. Further recommendations will be made once the scan was reviewed. Current Visit: Yes Status: Acute Code(s): R29.898 - OTH SYMPTOMS AND SIGNS INVOLVING THE MUSCULOSKELETAL SYSTEM SNOMED Code(s): 120788302 (2) DVT (deep venous thrombosis) Narrative/Plan: This appears to be related to malignancy, as well as decreased activity. Patient has been started on IV heparin. She can be transitioned to orals at any point. Current Visit: Yes Status: Acute Code(s): I82.409 - ACUTE EMBOLISM AND THOMBOS UNSP DEEP VN UNSP LOWER EXTREMITY SNOMED Code(s): 026524227 (3) Lung mass Narrative/Plan: Left lower lobe lung mass, along with borderline subcarinal adenopathy. This is unchanged from scan earlier this month. Again, the patient states that she has been diagnosed with lung cancer but did not have any biopsies. These have been requested from [facility]. Current Visit: No Status: Acute Code(s): R91.8 - OTHER NONSPECIFIC ABNORMAL FINDING OF LUNG FIELD SNOMED Code(s): 671647424 Plan: Defer to the admitting service and management of her other medical problems.
[2019-09-23] MEDS: DEXAMETHASONE SOD PHOSPHATE 4 MG/ML 1 ML VIAL IV SCH ×3 (11:04→23:06)
[2019-09-23] MEDS ORDERED: ONDANSETRON 4 MG TAB PO PRN (11:15)
[2019-09-23] MEDS ORDERED: NITROGLYCERIN SL TABS 0.4 MG TAB SUBLINGUAL PRN (11:15)
[2019-09-23] MEDS: ALBUTEROL NEBULIZED 2.5 MG/3 ML INHALATION SCH ×3 (12:45→19:48)
[2019-09-23] MEDS: MORPHINE SULFATE IR 15 MG TABLET PO PRN ×2 (14:04→18:07)
--- NOTE | 2019-09-23 14:26 | P.CRDCN ---
History of Present Illness History of present illness: This is Bindu Martins PA-C dictating a consult on this patient The patient was interviewed and examined by me as well as by Dr. Kay Case discussed with Dr. Kay and he agrees with the plan of care HPI Patient is a 64-year-old female with a history of lung cancer status post radiation, CAD, COPD, multiple sclerosis who presented with complaints of chest pressure and shortness of breath. She is a patient of Dr. Espinosa. Patient is a somewhat poor historian. She states she was recently discharged from [facility], she is unable to provide details. She states she has had fairly constant chest pressure for the last day. She is also felt worsening shortness of breath for the last month. Denies any palpitations, dizziness or syncope. Denies any lower extremity edema. Upon arrival to the emergency department temperature 98.9F, pulse 122, respirations 20, blood pressure 140/93, oxygen saturation 93% on room air. Chest x-ray showed masslike infiltrate which was seen on previous exam. Chest CT again showed masslike infiltrate in the left lower lobe suspicious for malignancy, mediastinal adenopathy, no evidence of PE. Venous Doppler showed acute and chronic deep vein thrombosis in the right leg and left leg shows some chronic deep vein thrombosis and acute deep vein thrombosis in the left leg also possible. EKG shows sinus tachycardia with nonspecific ch anges. Troponin negative 1. Patient was admitted for further workup and treatment. She has been started on heparin. Patient seen and examined resting in bed. States she still has some chest discomfort but it is improved from when she came in ROS: No fevers, chills or rigors, no cough, phlegm or expectoration, no nausea, vomiting or diarrhea, no hematuria, dysuria, Positive for weakness no strokes or seizures, no skin lesions. EXAMINATION: Temperature 98.5F, pulse 88, respirations 20, blood pressure 121/69, oxygen saturation 96% on 3 L nasal cannula Patient seen and examined resting in bed, in no acute distress Lungs are rhonchorous bilaterally, worse on the left Heart is regular, no audible murmurs Mild lower extremity edema bilaterally REVIEW OF LABS, ECG & MEDICAL DATA WBC 25.2, hemoglobin 13.3, platelets 317, potassium 3.9, BUN 32, creatinine 0.63 IMPRESSION / ASSESSMENT: #1 shortness of breath and chest discomfort likely related to lung cancer and COPD #2 history of lung cancer status post recent radiation therapy #3 history of CAD #4 COPD #5 multiple sclerosis #6 bilateral DVTs, chest CT negative for PE PLAN: Obtain 2-D echocardiogram and Doppler studies Maximize medical therapy Continue statins and aspirin Increase metoprolol to 25 mg twice a day Management of DVT per primary team Past Medical History Past Medical History: Asthma, Coronary Artery Disease (CAD), Chest Pain / Angina, COPD, Eye Disorder, Fibromyalgia, GI Bleed, Hyperlipidemia, Neurologic Disorder, Osteoarthritis (OA) Additional Past Medical History / Comment(s): MS, lung biopsy 08/15 at [facility] History of Any Multi-Drug Resistant Organisms: None Reported Past Surgical History: Appendectomy, Heart Catheterization With Stent, Hysterectomy, Joint Replacement, Orthopedic Surgery Additional Past Surgical History / Comment(s): CARDIAC STENTS 10 Past Anesthesia/Blood Transfusion Reactions: No Reported Reaction Date of Last Stent Placement:: 2008 Past Psychological History: Anxiety Smoking Status: Former smoker Past Alcohol Use History: None Reported Past Drug Use History: None Reported - Past Family History Mother Additional Family Medical History / Comment(s): Lupus Sister(s) Family Medical History: Cancer Additional Family Medical History / Comment(s): Uterus Medications and Allergies Home Medications Medication Instructions Recorded Confirmed Type Aspirin 325 mg PO DAILY 12/28/13 09/22/19 History Metoprolol Tartrate 12.5 mg PO BID 12/28/13 09/22/19 History Nitroglycerin Sl Tabs [Nitrostat] 0.4 mg SL Q5M PRN 12/28/13 09/22/19 History Loratadine [Claritin] 10 mg PO DAILY 03/18/14 09/22/19 History Rosuvastatin Calcium [Crestor] 20 mg PO DAILY 01/06/15 09/22/19 History Glatiramer Acetate [Copaxone] 40 mg SQ MOWEFR 01/07/15 09/22/19 History Morphine Sulfate ER [Ms Contin] 30 mg PO TID 01/07/15 09/22/19 History Fluticasone/Salmeterol [Advair 1 puff INHALATION RT-BID 09/16/15 09/22/19 History 250-50 Diskus] Mirabegron [Myrbetriq] 25 mg PO DAILY 09/03/19 09/22/19 History Pantoprazole Sodium [Protonix] 40 mg PO BID 09/03/19 09/22/19 History Albuterol Nebulized (Conc) 2.5 mg INHALATION RT-QID 09/22/19 09/22/19 History [Ventolin Nebulized (Conc)] Ascorbic Acid [Vitamin C] 500 mg PO DAILY 09/22/19 09/22/19 History Budesonide [Pulmicort] 0.5 mg INHALATION RT-BID 09/22/19 09/22/19 History Dexamethasone [Decadron] See Taper PO DAILY 09/22/19 09/22/19 History Gabapentin 300 mg PO TID 09/22/19 09/22/19 History Methocarbamol [Robaxin-750] 750 mg PO TID 09/22/19 09/22/19 History Mometasone Furoate [Nasonex Nasal 2 spr EA NOSTRIL DAILY 09/22/19 09/22/19 History [place]] Morphine Sulfate Ir [MSIR] 15 mg PO Q4H PRN 09/22/19 09/22/19 History Omeprazole 40 mg PO DAILY 09/22/19 09/22/19 History Ondansetron HCl [Zofran] 4 mg PO Q8H PRN 09/22/19 09/22/19 History Psyllium Husk [Metamucil] 0.4 gm PO DAILY 09/22/19 09/22/19 History Sennosides/Docusate Sodium 1 each PO BID 09/22/19 09/22/19 History [Senna-S 8.6-50 mg Tablet] Sucralfate [Carafate] 0.5 gm PO TID 09/22/19 09/22/19 History Zinc Sulfate 220 mg PO DAILY 09/22/19 09/22/19 History Allergies Allergy/AdvReac Type Severity Reaction Status Date / Time acetaminophen [From Percocet] Allergy Anaphylaxis Verified 09/22/19 21:41 ampicillin Allergy Rash/Hives Verified 09/22/19 21:41 atorvastatin calcium Allergy Unknown Verified 09/22/19 21:41 [From Lipitor] ciprofloxacin HCl Allergy Rash/Hives Verified 09/22/19 21:41 [From Cipro] diphenhydramine HCl Allergy Unknown Verified 09/22/19 21:41 [From Benadryl] fentanyl [From Duragesic] Allergy Unknown Verified 09/22/19 21:41 iodine Allergy Rash/Hives Verified 09/22/19 21:41 oxymorphone HCl [From Opana] Allergy Unknown Verified 09/22/19 21:41 Sulfa (Sulfonamide Allergy Unknown Verified 09/22/19 21:41 Antibiotics) azithromycin [From Zithromax] AdvReac Nausea Verified 09/22/19 21:41 cephalexin monohydrate AdvReac Nausea Verified 09/22/19 21:41 [From Keflex] oxycodone HCl AdvReac Hallucinati Verified 09/22/19 21:41 [From OxyContin] ons propoxyphene HCl AdvReac Nausea Verified 09/22/19 21:41 [From Darvon] Physical Exam Vitals: Vital Signs Temp Pulse Pulse Resp BP BP Pulse Ox 09/23/19 11:27 98.5 F 88 20 121/69 96 09/23/19 08:00 98.5 F 83 18 119/76 97 09/23/19 04:00 98.2 F 92 18 118/66 94 L 09/23/19 01:38 98.5 F 109 H 18 149/65 95 09/23/19 01:05 98.3 F 107 H 18 112/74 95 09/22/19 23:12 118 H 09/22/19 23:01 113 H 09/22/19 22:06 98.2 F 123 H 20 137/80 96 09/22/19 20:58 98.9 F 122 H 20 140/93 93 L Intake and Output 09/22/19 09/23/19 09/23/19 22:59 06:59 14:59 Intake Total 773.43 Output Total 50 Balance -50 773.43 Intake: IV 140 Heparin Sod,Pork in 0.45% 140 NaCl 25,000 unit In 0.45 % NaCl 1 250ml.bag @ 18 UNITS/KG/HR 20.412 mls/hr IV .[id number] [facility] Rx#: [id number] Intake, IV Titration 153.43 Amount Heparin Sod,Pork in 0.45% 153.43 NaCl 25,000 unit In 0.45 % NaCl 1 250ml.bag @ 18 UNITS/KG/HR 20.412 mls/hr IV .[id number] [facility] Rx#: [id number] Oral 480 Output: Urine 50 Other: # Voids 1 2 Weight 113.398 kg 93.5 kg Results 09/22/19 21:16 09/22/19 21:16 Cardiac Enzymes 09/22/19 09/22/19 Range/Units 21:16 21:16 AST 23 (14-36) U/L Troponin I <0.012 (0.000-0.034) ng/mL Coagulation 09/22/19 09/23/19 Range/Units 21:16 06:44 PT 10.7 (9.0-12.0) sec APTT 19.2 L >200.0 H* (22.0-30.0) sec CBC 09/22/19 Range/Units 21:16 WBC 25.2 H (3.8-10.6) k/uL RBC 4.87 (3.80-5.40) m/uL Hgb 13.3 (11.4-16.0) gm/dL Hct 42.7 (34.0-46.0) % Plt Count 317 (150-450) k/uL Comprehensive Metabolic Panel 09/22/19 Range/Units 21:16 Sodium 137 (137-145) mmol/L Potassium 3.9 (3.5-5.1) mmol/L Chloride 102 (98-107) mmol/L Carbon Dioxide 24 (22-30) mmol/L BUN 32 H (7-17) mg/dL Creatinine 0.63 (0.52-1.04) mg/dL Glucose 170 H (74-99) mg/dL Calcium 9.5 (8.4-10.2) mg/dL AST 23 (14-36) U/L ALT 24 (4-34) U/L Alkaline Phosphatase 99 (38-126) U/L Total Protein 6.0 L (6.3-8.2) g/dL Albumin 3.4 L (3.5-5.0) g/dL Current Medications Generic Name Dose Route Start Last Admin Trade Name Freq PRN Reason Stop Dose Admin Albuterol Sulfate 2.5 mg 09/23/19 12:00 09/23/19 12:45 Ventolin Nebulized INHALATION Not Given RT-QID [facility] Ascorbic Acid 500 mg 09/24/19 09:00 Vitamin C PO DAILY [facility] Aspirin 325 mg 09/24/19 09:00 Aspirin PO DAILY [facility] Budesonide 0.5 mg 09/23/19 20:00 Pulmicort INHALATION RT-BID [facility] Dexamethasone Sodium Phosphate 4 mg 09/23/19 12:00 09/23/19 11:04 Decadron IV 4 mg Q6HR [facility] Administration Gabapentin 300 mg 09/23/19 16:00 Neurontin PO TID [facility] Heparin Sodium (Porcine) 0 unit 09/23/19 00:17 Heparin IV PER PROTOCOL PRN Low PTT Protocol Hydromorphone HCl 0.5 mg 09/22/19 23:34 09/23/19 10:35 Dilaudid IVP 0.5 mg Q3HR PRN Administration Moderate Pain Hydromorphone HCl 1 mg 09/22/19 23:34 Dilaudid IVP Q3HR PRN Severe Pain Heparin Sodium/Sodium Chloride 250 mls @ 20.412 mls/hr 09/23/19 00:30 09/23/19 09:35 25,000 unit/ Sodium Chloride IV 15 units/kg/hr .[id number] [facility] 17.01 mls/hr Titration Protocol 18 UNITS/KG/HR Lorazepam 0.5 mg 09/22/19 23:34 Ativan IV Q6HR PRN Anxiety Methocarbamol 750 mg 09/23/19 16:00 Robaxin PO TID [facility] Metoprolol Tartrate 25 mg 09/23/19 21:00 Lopressor PO BID [facility] Morphine Sulfate 30 mg 09/23/19 16:00 Ms Contin PO TID [facility] Morphine Sulfate 15 mg 09/23/19 11:15 09/23/19 14:04 Msir PO 15 mg Q4H PRN Administration Pain Naloxone HCl 0.2 mg 09/22/19 23:34 Narcan IV Q2M PRN Opioid Reversal Nitroglycerin 0.4 mg 09/23/19 11:15 Nitrostat SUBLINGUAL Q5M PRN Chest Pain Non-Formulary Medication 40 mg 09/25/19 09:00 Glatiramer Acetate [Copaxone] SQ MOWEFR [facility] Non-Formulary Medication 25 mg 09/24/19 09:00 Mirabegron [Myrbetriq] PO DAILY [facility] Non-Formulary Medication 20 mg 09/24/19 09:00 Rosuvastatin Calcium [Crestor] PO DAILY [facility] Ondansetron HCl 4 mg 09/22/19 23:34 Zofran IVP Q8HR PRN Nausea And Vomiting Ondansetron HCl 4 mg 09/23/19 11:15 Zofran PO Q8H PRN Nausea And Vomiting Pantoprazole Sodium 40 mg 09/23/19 17:30 Protonix PO AC-BID [facility] Senna/Docusate Sodium 1 each 09/23/19 21:00 Senokot-S PO BID [facility] Sucralfate 0.5 gm 09/23/19 16:00 Carafate PO TID [facility] Zinc Sulfate 220 mg 09/24/19 09:00 Orazinc PO DAILY [facility] Intake and Output 09/22/19 09/23/19 09/23/19 22:59 06:59 14:59 Intake Total 773.43 Output Total 50 Balance -50 773.43 Intake: IV 140 Heparin Sod,Pork in 0.45% 140 NaCl 25,000 unit In 0.45 % NaCl 1 250ml.bag @ 18 UNITS/KG/HR 20.412 mls/hr IV .[id number] [facility] Rx#: [id number] Intake, IV Titration 153.43 Amount Heparin Sod,Pork in 0.45% 153.43 NaCl 25,000 unit In 0.45 % NaCl 1 250ml.bag @ 18 UNITS/KG/HR 20.412 mls/hr IV .[id number] [facility] Rx#: [id number] Oral 480 Output: Urine 50 Other: # Voids 1 2 Weight 113.398 kg 93.5 kg 09/22/19 21:16 09/22/19 21:16
[2019-09-23] MEDS: MORPHINE SULFATE ER 30 MG TABLET PO SCH ×2 (15:18→21:07)
[2019-09-23] MEDS: GABAPENTIN 300 MG CAP PO SCH ×2 (15:18→21:08)
[2019-09-23] MEDS: SUCRALFATE 1 GM TAB PO SCH ×2 (15:19→21:08)
[2019-09-23] MEDS: methocarbamoL 750 MG TAB PO SCH ×2 (15:19→21:07)
[2019-09-23 17:56] LABS: Glucose,Whole Blood 121 mg/dL (75-99)
[2019-09-23] MEDS: PANTOPRAZOLE 40 MG TABLET PO SCH (17:56)
--- NOTE | 2019-09-23 18:12 | P.CNNES ---
History of Present Illness Consult date: 09/23/19 Reason for Consult: possible spinal cord compression Chief complaint: back pain, leg weaknessand numbness History of Present Illness: The patient is a 64-year-old female who is seen in neurologic consultation on September 23, 2019, via teleneurology. Miss Coelho is being seen because of concerns regarding spinal cord compression. In speaking with the patient and her son, they both report that the patient has been having weakness in her legs since September 13, 2019 apparently the patient came to the ER at [facility] at which time a CT scan of the chest revealed a lung mass. She apparently was transferred to [facility] were a biopsy was performed. The patient and her son note that she was diagnosed with lung cancer with approximately 10 metastases to the brain as well as a metastasis to the "spine". The patient has had 10 radiation treatments to her spine, without benefit. She continues to have leg weakness, loss of sensation and inability to control her bowels or bladder. She also continues to have quite severe back pain. The patient reports that she is able to move her left foot, however that is the only movement she has of her lower extremities. The patient reports having pain behind her shoulders, and in her back. She denies neck pain. She reports constant headaches as well. denies weakness or numbness in her upper extremities. She reports frequent choking episodes. She denies diplopia. Past Medical History Past Medical History: Asthma, Coronary Artery Disease (CAD), Chest Pain / Angina, COPD, Eye Disorder, Fibromyalgia, GI Bleed, Hyperlipidemia, Neurologic Disorder, Osteoarthritis (OA) Additional Past Medical History / Comment(s): MS, lung biopsy 08/15 at [facility] History of Any Multi-Drug Resistant Organisms: None Reported Past Surgical History: Appendectomy, Heart Catheterization With Stent, Hysterectomy, Joint Replacement, Orthopedic Surgery Additional Past Surgical History / Comment(s): CARDIAC STENTS 10 Past Anesthesia/Blood Transfusion Reactions: No Reported Reaction Date of Last Stent Placement:: 2008 Past Psychological History: Anxiety Smoking Status: Former smoker Past Alcohol Use History: None Reported Past Drug Use History: None Reported - Past Family History Mother Additional Family Medical History / Comment(s): Lupus Sister(s) Family Medical History: Cancer Additional Family Medical History / Comment(s): Uterus Medications and Allergies Home Medications Medication Instructions Recorded Confirmed Type Aspirin 325 mg PO DAILY 12/28/13 09/22/19 History Metoprolol Tartrate 12.5 mg PO BID 12/28/13 09/22/19 History Nitroglycerin Sl Tabs [Nitrostat] 0.4 mg SL Q5M PRN 12/28/13 09/22/19 History Loratadine [Claritin] 10 mg PO DAILY 03/18/14 09/22/19 History Rosuvastatin Calcium [Crestor] 20 mg PO DAILY 01/06/15 09/22/19 History Glatiramer Acetate [Copaxone] 40 mg SQ MOWEFR 01/07/15 09/22/19 History Morphine Sulfate ER [Ms Contin] 30 mg PO TID 01/07/15 09/22/19 History Fluticasone/Salmeterol [Advair 1 puff INHALATION RT-BID 09/16/15 09/22/19 History 250-50 Diskus] Mirabegron [Myrbetriq] 25 mg PO DAILY 09/03/19 09/22/19 History Pantoprazole Sodium [Protonix] 40 mg PO BID 09/03/19 09/22/19 History Albuterol Nebulized (Conc) 2.5 mg INHALATION RT-QID 09/22/19 09/22/19 History [Ventolin Nebulized (Conc)] Ascorbic Acid [Vitamin C] 500 mg PO DAILY 09/22/19 09/22/19 History Budesonide [Pulmicort] 0.5 mg INHALATION RT-BID 09/22/19 09/22/19 History Dexamethasone [Decadron] See Taper PO DAILY 09/22/19 09/22/19 History Gabapentin 300 mg PO TID 09/22/19 09/22/19 History Methocarbamol [Robaxin-750] 750 mg PO TID 09/22/19 09/22/19 History Mometasone Furoate [Nasonex Nasal 2 spr EA NOSTRIL DAILY 09/22/19 09/22/19 History [place]] Morphine Sulfate Ir [MSIR] 15 mg PO Q4H PRN 09/22/19 09/22/19 History Omeprazole 40 mg PO DAILY 09/22/19 09/22/19 History Ondansetron HCl [Zofran] 4 mg PO Q8H PRN 09/22/19 09/22/19 History Psyllium Husk [Metamucil] 0.4 gm PO DAILY 09/22/19 09/22/19 History Sennosides/Docusate Sodium 1 each PO BID 09/22/19 09/22/19 History [Senna-S 8.6-50 mg Tablet] Sucralfate [Carafate] 0.5 gm PO TID 09/22/19 09/22/19 History Zinc Sulfate 220 mg PO DAILY 09/22/19 09/22/19 History Allergies Allergy/AdvReac Type Severity Reaction Status Date / Time acetaminophen [From Percocet] Allergy Anaphylaxis Verified 09/22/19 21:41 ampicillin Allergy Rash/Hives Verified 09/22/19 21:41 atorvastatin calcium Allergy Unknown Verified 09/22/19 21:41 [From Lipitor] ciprofloxacin HCl Allergy Rash/Hives Verified 09/22/19 21:41 [From Cipro] diphenhydramine HCl Allergy Unknown Verified 09/22/19 21:41 [From Benadryl] fentanyl [From Duragesic] Allergy Unknown Verified 09/22/19 21:41 iodine Allergy Rash/Hives Verified 09/22/19 21:41 oxymorphone HCl [From Opana] Allergy Unknown Verified 09/22/19 21:41 Sulfa (Sulfonamide Allergy Unknown Verified 09/22/19 21:41 Antibiotics) azithromycin [From Zithromax] AdvReac Nausea Verified 09/22/19 21:41 cephalexin monohydrate AdvReac Nausea Verified 09/22/19 21:41 [From Keflex] oxycodone HCl AdvReac Hallucinati Verified 09/22/19 21:41 [From OxyContin] ons propoxyphene HCl AdvReac Nausea Verified 09/22/19 21:41 [From Darvon] Physical Examination - Vital Signs Vital Signs: Vital Signs Temp Pulse Pulse Resp BP BP Pulse Ox 09/23/19 11:27 98.5 F 88 20 121/69 96 09/23/19 08:00 98.5 F 83 18 119/76 97 09/23/19 04:00 98.2 F 92 18 118/66 94 L 09/23/19 01:38 98.5 F 109 H 18 149/65 95 09/23/19 01:05 98.3 F 107 H 18 112/74 95 07/24/20 23:12 118 H 09/22/19 23:01 113 H 09/22/19 22:06 98.2 F 123 H 20 137/80 96 09/22/19 20:58 98.9 F 122 H 20 140/93 93 L Intake and Output 09/22/19 09/23/19 09/23/19 22:59 06:59 14:59 Intake Total 153.43 Output Total 50 Balance -50 153.43 Intake: Intake, IV Titration 153.43 Amount Heparin Sod,Pork in 0.45% 153.43 NaCl 25,000 unit In 0.45 % NaCl 1 250ml.bag @ 18 UNITS/KG/HR 20.412 mls/hr IV .[id number] [facility] Rx#: [id number] Output: Urine 50 Other: # Voids 1 Weight 113.398 kg 93.5 kg Gen.: The patient is reclining in the bed. She is well-nourished, well- developed and in mild distress. HEENT: Head is atraumatic, normocephalic. Fundus not visualized. There is no scleral icterus. Mucous membranes are moist. Neck: Supple without carotid bruits Heart: Regular rate and rhythm Extremities: Bilateral lower extremity edema Neurological examination Mental status: The patient is awake, alert and oriented 3. Her speech is slightly dysarthric. Cranial nerves: Pupils are equal, round and reactive to light. Visual mayo are full to confrontation. Extraocular movements are intact. There is no nystagmus. Facial sensations intact. There is no facial asymmetry. Hearing is grossly intact. Uvula and palate are midline. Shoulder shrug is symmetric. Tongue protrudes midline. Motor: Upper extremity strength is 5/5. The patient is able to slightly dorsi and plantarflex her left foot. There is no other movement of the lower extremities. Sensation: There is a T6 anterior sensory level Coordination: There is dysmetria on left-sided finger to nose testing. Rapid alternating movements are intact. Deep tendon reflexes 3+/4+ throughout. There are 2 beats of clonus at the ankles bilaterally. Plantar responses are mute bilaterally. Bocanegra sign is absent. Results - Laboratory Findings CBC and BMP: 09/22/19 21:16 09/22/19 21:16 Abnormal Lab Findings: Abnormal Labs 09/22/19 09/22/19 09/22/19 21:16 21:16 21:16 WBC 25.2 H Neutrophils # 24.0 H Lymphocytes # 0.3 L APTT 19.2 L D-Dimer BUN 32 H Glucose 170 H Total Protein 6.0 L Albumin 3.4 L 09/22/19 09/23/19 21:16 06:44 WBC Neutrophils # Lymphocytes # APTT >200.0 H* D-Dimer 4.21 H BUN Glucose Total Protein Albumin Assessment and Plan Assessment: 1. 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 History of recent diagnosis of lung cancer with multiple metastases to brain and spinal area 3. Status post radiation to spine without benefit Plan: 1. Obtain records from [facility] 2. Agree with Decadron 3. Consider transfer to [facility] for possible surgical intervention 4. Pain control Time with Patient: Greater than 30 (spent 45 minutes with patient via teleneurology)
[2019-09-23] MEDS: BUDESONIDE 0.5 MG/2 ML NEBU INHALATION SCH (19:48)
[2019-09-23 20:16] LABS: Glucose,Whole Blood 165 mg/dL (75-99)
[2019-09-23] MEDS ORDERED: PRAVASTATIN SODIUM 40 MG TAB PO SCH (21:00)
[2019-09-23] MEDS ORDERED: METOPROLOL TARTRATE 12.5 MG TAB PO SCH (21:00)
[2019-09-23] MEDS: METOPROLOL TARTRATE 25 MG TAB PO SCH (21:08)
[2019-09-23] MEDS: SENNOSIDES-DOCUSATE SODIUM 1 EACH TAB PO SCH (21:08)
[2019-09-24] MEDS: HEPARIN SOD,PORK IN 0.45% NACL 25,000 UNIT in 0.45% NACL 1 250ML.BAG IV SCH ×2 (02:41→15:12)
[2019-09-24] MEDS: MORPHINE SULFATE IR 15 MG TABLET PO PRN ×2 (02:42→11:15)
[2019-09-24] MEDS: HYDROmorphone 0.5 MG/0.5 ML SYRINGE IVP PRN ×2 (05:41→18:28)
[2019-09-24] MEDS: DEXAMETHASONE SOD PHOSPHATE 4 MG/ML 1 ML VIAL IV SCH ×2 (05:42→11:15)
[2019-09-24] MEDS: PANTOPRAZOLE 40 MG TABLET PO SCH (05:42)
[2019-09-24 06:09] LABS: Glucose,Whole Blood 124 mg/dL (75-99)
[2019-09-24] MEDS: BUDESONIDE 0.5 MG/2 ML NEBU INHALATION SCH (07:20)
[2019-09-24] MEDS: ALBUTEROL NEBULIZED 2.5 MG/3 ML INHALATION SCH ×3 (07:20→15:45)
[2019-09-24 07:53] LABS: Basophils % (A) 0 %; Eosinophils % (A) 0 %; Hypochromasia Marked; Lymphocytes # (A) 0.2 k/uL (1.0-4.8); Lymphocytes % (A) 2 %; MCH 26.3 pg (25.0-35.0); MCV 87.4 fL (80.0-100.0); Mean Platelet Volume 8.1; Monocytes # (A) 0.4 k/uL (0-1.0); Monocytes % (A) 3 %; Neutrophils # (A) 11.6 k/uL (1.3-7.7); Neutrophils % (A) 94 %; Platelet Count 195 k/uL (150-450); RBC 3.89 m/uL (3.80-5.40); RDW 14.6 % (11.5-15.5); WBC 12.3 k/uL (3.8-10.6)
[2019-09-24 07:55] LABS: HGB 10.2 gm/dL (11.4-16.0)
[2019-09-24] MEDS ORDERED: ROSUVASTATIN CALCIUM 20 MG PO SCH (09:00)
[2019-09-24] MEDS ORDERED: ASCORBIC ACID 500 MG TAB PO SCH (09:00)
[2019-09-24] MEDS ORDERED: NON FORMULARY DRUG (Mirabegron [Myrbetriq] 25 MG) PO SCH (09:00)
[2019-09-24] MEDS ORDERED: ZINC SULFATE 220 MG CAP PO SCH (09:00)
[2019-09-24] MEDS ORDERED: ASPIRIN 325 MG TAB PO SCH (09:00)
[2019-09-24] MEDS: SUCRALFATE 1 GM TAB PO SCH ×2 (09:35→15:11)
[2019-09-24] MEDS: MORPHINE SULFATE ER 30 MG TABLET PO SCH ×2 (09:36→15:11)
[2019-09-24] MEDS: SENNOSIDES-DOCUSATE SODIUM 1 EACH TAB PO SCH (09:37)
[2019-09-24] MEDS: GABAPENTIN 300 MG CAP PO SCH ×2 (09:37→15:11)
[2019-09-24] MEDS: methocarbamoL 750 MG TAB PO SCH ×2 (09:37→15:12)
[2019-09-24] MEDS: METOPROLOL TARTRATE 25 MG TAB PO SCH (09:38)
[2019-09-24] MEDS ORDERED: ALPRAZolam 0.5 MG TAB PO PRN (11:36)
[2019-09-24 11:46] VITALS: RESP 20
[2019-09-24 12:03] LABS: Glucose,Whole Blood 107 mg/dL (75-99)
--- NOTE | 2019-09-24 15:08 | P.PN ---
Subjective Progress Note Date: 09/24/19 Patient is a 64-year-old female with a history of lung cancer status post radiation, CAD, COPD, multiple sclerosis who presented with complaints of chest pressure and shortness of breath, who follows with Dr Espinosa in the office. She was found to have a masslike infiltrate ON chest CT, she says that she has for malignancy. No evidence of pulmonary embolism, however venous Doppler showed acute and chronic bilateral DVT's. At the time of my exam, the patient was lying comfortably in bed. She states s he had just fallen asleep. She denies any chest pain or chest pressure. She does have some shortness of breath. She denies any palpitations, dizziness, or lightheadedness, however states she has not been out of the bed in several days. She is quite emotional in regards to her current home and states she is in the process of being transferred back to [facility]. GENERAL: This is a 64-year-old obese female in no apparent distress at the time of my examination. HEENT: Head is atraumatic, normocephalic. Pupils are equal, round. Sclerae anicteric. Conjunctivae are clear. Mucous membranes of the mouth are moist. Neck is supple. There is no jugular venous distention. No carotid bruit is heard. LUNGS: Bilateral expiratory wheezes to auscultation. No rales or rhonchi. No chest wall tenderness is noted on palpation or with deep breathing. HEART: Regular rate and rhythm without murmurs, rubs or gallops. S1 and S2 heard. ABDOMEN: Soft, nontender. Bowel sounds are heard. No organomegaly noted. EXTREMITIES: +2 lower extremity edema. no calf tenderness noted. Positive for bilateral foot drop. VASCULAR: Radial and dorsalis pedis pulses palpated, no evidence of clubbing. NEUROLOGIC: Patient is awake, alert and oriented x3. VITALS: 133/82, heart rate 80, respiratory rate 20, SpO2 97% on 3 L nasal cannula. Afebrile TELEMETRY: Sinus rhythm with occasional PVCs LABS: WBC 12.3, and hemoglobin 10.2, hematocrit 34.0, platelet 195 IMPRESSION: #1 shortness of breath, likely related to lung cancer and COPD #2 history of lung cancer status post recent radiation therapy #3 history of CAD #4 COPD #5 multiple sclerosis #6 bilateral DVTs, chest CT negative for PE PLAN: Continue current medication regimen at this time. Patient is in the process of being transferred to [facility]. Objective - Vital Signs Vital signs: Vital Signs Temp 98.3 F 09/24/19 11:10 Pulse 80 09/24/19 11:10 Resp 20 09/24/19 11:10 BP 133/82 09/24/19 11:10 Pulse Ox 97 09/24/19 11:10 Intake & Output 09/23/19 09/24/19 09/24/19 18:59 06:59 18:59 Intake Total 1092.00 91.004 571.4 Output Total 750 300 Balance 342.00 -208.996 571.4 Weight 92.5 kg Intake: IV 140 Heparin Sod,Pork in 0.45% 140 NaCl 25,000 unit In 0.45 % NaCl 1 250ml.bag @ 18 UNITS/KG/HR 20.412 mls/hr IV .[id number] [facility] Rx#: [id number] Intake, IV Titration 250.00 91.004 91.4 Amount Heparin Sod,Pork in 0.45% 250.00 91.004 91.4 NaCl 25,000 unit In 0.45 % NaCl 1 250ml.bag @ 18 UNITS/KG/HR 20.412 mls/hr IV .[id number] [facility] Rx#: [id number] Oral 702 480 Output: Urine 750 300 Other: # Voids 2 - Labs CBC & Chem 7: 09/24/19 05:47 09/22/19 21:16 Labs: Abnormal Lab Results - Last 24 Hours (Table) 09/23/19 09/23/19 09/23/19 Range/Units 15:20 17:55 20:15 WBC (3.8-10.6) k/uL Hgb (11.4-16.0) gm/dL MCHC (31.0-37.0) g/dL Neutrophils # (1.3-7.7) k/uL Lymphocytes # (1.0-4.8) k/uL APTT 60.6 H (22.0-30.0) sec POC Glucose (mg/dL) 121 H 165 H (75-99) mg/dL 09/23/19 09/24/19 09/24/19 Range/Units 22:00 05:47 05:47 WBC 12.3 H (3.8-10.6) k/uL Hgb 10.2 L D (11.4-16.0) gm/dL MCHC 30.0 L (31.0-37.0) g/dL Neutrophils # 11.6 H (1.3-7.7) k/uL Lymphocytes # 0.2 L (1.0-4.8) k/uL APTT 114.2 H* 61.3 H (22.0-30.0) sec POC Glucose (mg/dL) (75-99) mg/dL 09/24/19 09/24/19 Range/Units 06:05 12:02 WBC (3.8-10.6) k/uL Hgb (11.4-16.0) gm/dL MCHC (31.0-37.0) g/dL Neutrophils # (1.3-7.7) k/uL Lymphocytes # (1.0-4.8) k/uL APTT (22.0-30.0) sec POC Glucose (mg/dL) 124 H 107 H (75-99) mg/dL Microbiology - Last 24 Hours (Table) 09/22/19 21:52 Blood Culture - Preliminary Blood No Growth after 24 hours
[2019-09-24 15:32] VITALS: BP 109/82; TEMP 98.4
[2019-09-24 16:05] VITALS: PULSE 83
[2019-09-24 17:40] LABS: Glucose,Whole Blood 118 mg/dL (75-99)
[2019-09-25] MEDS ORDERED: NON FORMULARY DRUG (Glatiramer Acetate [Copaxone] 40 MG) SQ SCH (09:00)
== END 2019-09-24 18:57 | disposition short-term general hospital (02) | DRG 92 ==
LOC: EC 20:57 → 3SCARD 09-23 00:13 → OBSVTOIN 09-23 10:33
PROVIDERS: ADMIT Hospitalist; ATTEND Hospitalist
DX: G95.29 Other cord compression (principal); C34.32 Malignant neoplasm of lower lobe, left bronchus or lung; I82.413 Acute embolism and thrombosis of femoral vein, bilateral; C79.51 Secondary malignant neoplasm of bone; C79.31 Secondary malignant neoplasm of brain; J44.1 Chronic obstructive pulmonary disease with (acute) exacerbation; D72.829 Elevated white blood cell count, unspecified; E66.9 Obesity, unspecified; G35 Multiple sclerosis; G82.20 Paraplegia, unspecified; Z20.828 Contact with and (suspected) exposure to other viral communicable diseases; G89.29 Other chronic pain; M21.371 Foot drop, right foot; M21.372 Foot drop, left foot; M79.7 Fibromyalgia; R32 Unspecified urinary incontinence; K59.00 Constipation, unspecified; I49.3 Ventricular premature depolarization; I25.10 Atherosclerotic heart disease of native coronary artery without angina pectoris; E78.5 Hyperlipidemia, unspecified; R59.9 Enlarged lymph nodes, unspecified; F41.9 Anxiety disorder, unspecified; Z68.37 Body mass index [BMI] 37.0-37.9, adult; M19.91 Primary osteoarthritis, unspecified site; Z79.82 Long term (current) use of aspirin; Z79.891 Long term (current) use of opiate analgesic; Z79.51 Long term (current) use of inhaled steroids; Z79.52 Long term (current) use of systemic steroids; Z79.899 Other long term (current) drug therapy; Z92.3 Personal history of irradiation; Z74.01 Bed confinement status; Z95.5 Presence of coronary angioplasty implant and graft; Z90.49 Acquired absence of other specified parts of digestive tract; Z87.19 Personal history of other diseases of the digestive system; Z98.890 Other specified postprocedural states; Z90.710 Acquired absence of both cervix and uterus; Z87.42 Personal history of other diseases of the female genital tract; Z96.60 Presence of unspecified orthopedic joint implant; Z87.891 Personal history of nicotine dependence; Z86.69 Personal history of other diseases of the nervous system and sense organs; Z88.6 Allergy status to analgesic agent; Z88.1 Allergy status to other antibiotic agents; Z88.5 Allergy status to narcotic agent; Z88.0 Allergy status to penicillin; Z88.2 Allergy status to sulfonamides; Z88.8 Allergy status to other drugs, medicaments and biological substances; W19.XXXA Unspecified fall, initial encounter; Z80.49 Family history of malignant neoplasm of other genital organs; Z82.69 Family history of other diseases of the musculoskeletal system and connective tissue
CPT/HCPCS: 36415; 71046; 71275; 80053; 83605; 83735; 84484; 85025; 85379; 85610; 85730; 87040; 93005; 93970; 94640; 94760; 96361; 96365; 96375; 96376; 99285